=== PATIENT | male | born 1975 | race Caucasian/White ===

== ENCOUNTER 2019-06-17 20:40 | Observation (INO) | payer OTHER ==
--- NOTE | 2019-06-17 21:28 | XR ---
EXAMINATION TYPE: XR tibia fibula LT, XR foot complete LT, XR ankle complete LT DATE OF EXAM: 06/17/2019 CLINICAL HISTORY: Jumping injury with pain TECHNIQUE: Two views of the left leg are obtained. 3 views of left ankle and foot are obtained COMPARISON: None. FINDINGS: There is acute comminuted intra-articular displaced fracture through the medial malleolus extending into mortise with medial widening. Anterior portion of distal tibia is 5 to 6 mm displaced relative to posterior portion articulation with the talus. Lateral and posterior malleoli appear inta ct. The left knee joint appears within normal limits. Mild to moderate distal subcutaneous edema is p resent. Images of the left foot show no additional acute fracture or dislocation distally. Joint spaces and l eft foot are preserved. Mild diffuse subcutaneous edema is present. IMPRESSION: There is acute comminuted displaced fracture through the distal tibia involving medial m alleolus with mortise disruption. (Initial encounter closed type posttraumatic fracture)
[2019-06-17] MEDS ORDERED: MORPHINE SULFATE 4 MG/ML SYRINGE IVP STA (22:32)
[2019-06-17] MEDS ORDERED: MORPHINE SULFATE 4 MG/ML SYRINGE IV PRN (23:37)
[2019-06-17] MEDS ORDERED: NALOXONE 0.4 MG/ML 1 ML VIAL IV PRN (23:37)
--- NOTE | 2019-06-18 00:09 | XR ---
History: ITS.REASON XR Reason: Pain Exam: XR LEFT ANKLE 2 views Comparison: Preceding radiographs FINDINGS/IMPRESSION: Appearance of interval close reduction now with near anatomic alignment although there is still some incongruence along the anterior aspect of the distal tibia comminuted intra-articular fracture. Soft tissue swelling about the ankle. There is now a splint present.
[2019-06-18] MEDS ORDERED: MORPHINE SULFATE 4 MG/ML SYRINGE IVP STA (00:14)
[2019-06-18 00:24] LABS: HCT 47.8 % (39.0-53.0); HGB 15.4 gm/dL (13.0-17.5); MCH 29.4 pg (25.0-35.0); MCHC 32.3 g/dL (31.0-37.0); MCV 91.2 fL (80.0-100.0); Mean Platelet Volume 8.3; Platelet Count 189 k/uL (150-450); RBC 5.24 m/uL (4.30-5.90); RDW 14.6 % (11.5-15.5); WBC 14.9 k/uL (3.8-10.6)
--- NOTE | 2019-06-18 00:27 | ED ---
General Adult HPI - General Source: patient, family Mode of arrival: wheelchair Limitations: no limitations <Darnell Campbell - Last Filed: 06/18/19 00:29> <Chapin Novak - Last Filed: 06/18/19 02:02> - General Chief complaint: Extremity Injury, Lower Stated complaint: Ankle injury Time Seen by Provider: 06/17/19 20:51 - History of Present Illness Initial comments: Patient is a 43-year-old male presenting to emergency Department with a chief complaint of left ankle pain. Patient reports he was in a swing set when he hopped off and landed on his left ankle causing immediate pain. Patient reports the pain is exacerbated with palpation neared ankle, inversion, eversion, dorsiflexion and plantarflexion. Patient reports swelling superior to the ankle. Patient reports taking Tylenol to alleviate the pain with minimal improvement. Patient denies any numbness and tingling. Patient reports full ra nge of motion and his toes.. (Darnell Campbell) - Related Data Allergies Allergy/AdvReac Type Severity Reaction Status Date / Time bee venom protein (honey bee) Allergy Rash/Hives Verified 06/17/19 20:46 diphenhydramine Allergy Anaphylaxis Verified 06/17/19 20:46 [From Benadryl] Review of Systems ROS Other: All systems not noted in ROS Statement are negative. <Darnell Campbell - Last Filed: 06/18/19 00:29> ROS Other: All systems not noted in ROS Statement are negative. <Chapin Novak - Last Filed: 06/18/19 02:02> ROS Statement: Those systems with pertinent positive or pertinent negative responses have been documented in the HPI. Past Medical History Past Medical History: No Reported History History of Any Multi-Drug Resistant Organisms: None Reported Past Surgical History: No Surgical Hx Reported Past Psychological History: No Psychological Hx Reported Smoking Status: Current every day smoker Past Alcohol Use History: Occasional Past Drug Use History: None Reported <Darnell Campbell - Last Filed: 06/18/19 00:29> General Exam Limitations: no limitations General appearance: alert, in no apparent distress Head exam: Present: atraumatic, normocephalic, normal inspection Eye exam: Present: normal appearance, PERRL, EOMI Pupils: Present: normal accommodation ENT exam: Present: normal exam, mucous membranes moist, normal external ear exam Neck exam: Present: normal inspection, full ROM Respiratory exam: Present: normal lung sounds bilaterally Cardiovascular Exam: Present: regular rate, normal rhythm, normal heart sounds Extremities exam: Present: normal inspection (No lacerations, abrasions or ecchymosis.), tenderness (Mild to moderate tenderness with palpation near the medial malleolus in the region superior to that.), normal capillary refill, joint swelling (Left ankle swelling), other (+2 dorsalis pedis and posterior tibialis on the left foot.). Absent: full ROM (Limited range of motion due to pain. Pain with weightbearing.), calf tenderness Left Neurovascular tendon exam: Present: no vascular compromise. Absent: pulse deficit, abnormal cap refill, motor deficit, sensory deficit, tendon deficit, extremity cold to touch, pallor, abnormal 2-point discrimination Back exam: Present: normal inspection, full ROM Neurological exam: Present: alert, oriented X3 Psychiatric exam: Present: normal affect, normal mood Skin exam: Present: warm, intact, normal color <Darnell Campbell - Last Filed: 06/18/19 00:29> Course <Chapin Novak - Last Filed: 06/18/19 02:02> Vital Signs 06/17/19 06/17/19 06/18/19 20:41 22:46 00:57 Temperature 99 F 98.1 F Pulse Rate 92 103 H 72 Respiratory 20 20 18 Rate Blood Pressure 170/89 156/90 144/85 O2 Sat by Pulse 98 96 95 Oximetry - Reevaluation(s) Reevaluation #1: Pain is controlled, acceptable reduction (Chapin Novak) EKG Findings - EKG Comments: EKG Findings:: EKG shows sinus rhythm rate of 60, [place] 112, QRS 78, QTc 431 <Chapin Novak - Last Filed: 06/18/19 02:02> Procedures - Orthopedic Fracture Reduction Fracture #1 Consent Obtained: verbal consent Side: left Fracture Reduction Location: tibia Analgesia: other (Morphine) Technique: traction/counter-traction Post Reduction X-rays Demonstrate: acceptable reduction Post-Reduction Neuro Exam: intact Post-Reduction Vascular Exam: intact Splint Applied: Yes (Posterior splint) Patient Tolerated Procedure: well - Orthopedic Splinting/Casting Injury #1 Side: left Lower Extremity Injury Location: long leg Lower Extremity Immobilizer: posterior splint, Jose wrap, synthetic pre-padded splint <Darnell Campbell - Last Filed: 06/18/19 00:29> Medical Decision Making - Lab Data Result diagrams: 06/18/19 00:05 <Darnell Campbell - Last Filed: 06/18/19 00:29> - Lab Data Result diagrams: 06/18/19 00:05 06/18/19 00:05 <Chapin Novka - Last Filed: 06/18/19 02:02> - Medical Decision Making Patient is a 43-year-old male presenting to emergency Department with a chief complaint of left ankle pain. X-ray of the tib-fib, ankle and foot indicated a acute commuted displaced fracture through the distal tibia involving the medial malleolus with more Marielena's disruption. Patient was given morphine for pain. Mild diffuse subcutaneous edema is present. Case was discussed with Dr. Osborne who advised the patient to be placed on a posterior splint and admitted for further surgical management. Fracture was reduced. Patient will be nothing by mouth. Presurgical labs and imaging were obtained. Case discussed with Dr. Novak who is in agreement with the treatment plan. (Darnell Campbell) - Lab Data Lab Results 06/18/19 06/18/19 06/18/19 Range/Units 00:05 00:05 00:05 WBC 14.9 H (3.8-10.6) k/uL RBC 5.24 (4.30-5.90) m/uL Hgb 15.4 (13.0-17.5) gm/dL Hct 47.8 (39.0-53.0) % MCV 91.2 (80.0-100.0) fL MCH 29.4 (25.0-35.0) pg MCHC 32.3 (31.0-37.0) g/dL RDW 14.6 (11.5-15.5) % Plt Count 189 (150-450) k/uL PT 10.2 (9.0-12.0) sec INR 0.9 (<1.2) APTT 22.4 (22.0-30.0) sec Sodium 139 (137-145) mmol/L Potassium 4.5 (3.5-5.1) mmol/L Chloride 107 (98-107) mmol/L Carbon Dioxide 22 (22-30) mmol/L Anion Gap 10 mmol/L BUN 14 (9-20) mg/dL Creatinine 1.03 (0.66-1.25) mg/dL Est GFR (CKD-EPI)AfAm >90 (>60 ml/min/1.73 sqM) Est GFR (CKD-EPI)NonAf 88 (>60 ml/min/1.73 sqM) Glucose 99 (74-99) mg/dL Calcium 9.3 (8.4-10.2) mg/dL Total Bilirubin 0.5 (0.2-1.3) mg/dL AST 32 (17-59) U/L ALT 36 (21-72) U/L Alkaline Phosphatase 58 (38-126) U/L Total Protein 7.3 (6.3-8.2) g/dL Albumin 4.4 (3.5-5.0) g/dL Blood Type Blood Type Confirm Blood Type Recheck Spec Expiration Date 06/18/19 06/18/19 Range/Units 00:05 00:08 WBC (3.8-10.6) k/uL RBC (4.30-5.90) m/uL Hgb (13.0-17.5) gm/dL Hct (39.0-53.0) % MCV (80.0-100.0) fL MCH (25.0-35.0) pg MCHC (31.0-37.0) g/dL RDW (11.5-15.5) % Plt Count (150-450) k/uL PT (9.0-12.0) sec INR (<1.2) APTT (22.0-30.0) sec Sodium (137-145) mmol/L Potassium (3.5-5.1) mmol/L Chloride (98-107) mmol/L Carbon Dioxide (22-30) mmol/L Anion Gap mmol/L BUN (9-20) mg/dL Creatinine (0.66-1.25) mg/dL Est GFR (CKD-EPI)AfAm (>60 ml/min/1.73 sqM) Est GFR (CKD-EPI)NonAf (>60 ml/min/1.73 sqM) Glucose (74-99) mg/dL Calcium (8.4-10.2) mg/dL Total Bilirubin (0.2-1.3) mg/dL AST (17-59) U/L ALT (21-72) U/L Alkaline Phosphatase (38-126) U/L Total Protein (6.3-8.2) g/dL Albumin (3.5-5.0) g/dL Blood Type A Positive Blood Type Confirm A Positive Blood Type Recheck CABO Indicated Spec Expiration Date 06/21/2019 1066 Disposition Is patient prescribed a controlled substance at d/c from ED?: No Time of Disposition: 00:32 <Darnell Campbell - Last Filed: 06/18/19 00:29> <Chapin Novak - Last Filed: 06/18/19 02:02> Clinical Impression: Fracture of distal end of left tibia Disposition: HOME SELF-CARE Condition: Stable Instructions (If sedation given, give patient instructions): Leg Fracture (ED) Additional Instructions: Patient will be admitted for further management. Referrals: None,Stated [Primary Care Provider] - 1-2 days
[2019-06-18 00:32] LABS: INR 0.9 (<1.2); Partial Thromboplastin Time 22.4 sec (22.0-30.0); Prothrombin Time 10.2 sec (9.0-12.0)
[2019-06-18 00:34] LABS: ALT 36 U/L (21-72); AST 32 U/L (17-59); African American GFR (CKD) >90 (>60 ml/min/1.73 sqM); Albumin 4.4 g/dL (3.5-5.0); Alkaline Phosphatase 58 U/L (38-126); Anion Gap 10 mmol/L; Blood Urea Nitrogen 14 mg/dL (9-20); Calcium 9.3 mg/dL (8.4-10.2); Carbon Dioxide 22 mmol/L (22-30); Chloride 107 mmol/L (98-107); Glucose 99 mg/dL (74-99); Sodium 139 mmol/L (137-145); Total Bilirubin 0.5 mg/dL (0.2-1.3); Total Protein 7.3 g/dL (6.3-8.2)
[2019-06-18 00:47] LABS: Potassium 4.5 mmol/L (3.5-5.1)
--- NOTE | 2019-06-18 00:48 | XR ---
History: ITS.REASON XR Reason: Pain Exam: XR CXR 1 VIEW Comparison: None available FINDINGS: The lungs are clear. The cardiac and mediastinal contours appear within limits. The visualized osseous structures appear within limits. IMPRESSION: No evidence of acute disease.
[2019-06-18] MEDS: SODIUM CHLORIDE 0.9% 1,000 ML IV SCH ×2 (00:57→16:28)
[2019-06-18 03:39] VITALS: BMI 23.6
--- NOTE | 2019-06-18 08:44 | P.HPOR ---
History of Present Illness H&P Date: 06/18/19 Chief Complaint: Left ankle injury The patient is a 43-year-old male who jumped off a swing and injured his left ankle. He was brought to the emergency department at [facility] where x-rays revealed a displaced pilon fracture. He localizes the pain to the left ankle and denies any other injuries. He admits that he's had issues with rolling both ankles many times throughout his life but no major fractures or previous ankle surgeries. Past medical history is significant for atrial fibrillation. He denies diabetes, cardiovascular kidney disease. He is a current smoker of 1.5 packs per day. Past Medical History Past Medical History: No Reported History Additional Past Medical History / Comment(s): states he has been diagnosed with an arrythmia vs. afib years ago. states he has not had his condition checked out nor does he take any medications to maintain it. states it feels like he has butterflies in his chest and that this happens primarily at night. History of Any Multi-Drug Resistant Organisms: None Reported Past Surgical History: No Surgical Hx Reported Additional Past Surgical History / Comment(s): lasik eye surgery, tubes in ears. Past Psychological History: No Psychological Hx Reported Smoking Status: Current every day smoker Past Alcohol Use History: Occasional Past Drug Use History: None Reported - Past Family History Father Family Medical History: Cancer Mother Family Medical History: No Reported History Medications and Allergies Home Medications Medication Instructions Recorded Confirmed Type No Known Home Medications 06/18/19 06/18/19 History Allergies Allergy/AdvReac Type Severity Reaction Status Date / Time bee venom protein (honey bee) Allergy Rash/Hives Verified 06/18/19 08:00 diphenhydramine Allergy Anaphylaxis Verified 06/18/19 08:00 [From Benadryl] Physical Examination HEENT: Normocephalic and atraumatic. Cardiovascular: Regular rate and rhythm. Pulmonary: No audible wheeze or conversational dyspnea Abdomen: Soft & nontender Musculoskeletal: Left lower extremity: A posterior splint is in place. This was windowed to evaluate the soft tissues. There is mild to moderate evolving edema around the ankle. No visible blisters, open wounds or abrasions. Dorsalis pedis pulses 2+ and regular. The foot is warm and well-perfused with brisk capillary refill. Intact light touch sensation throughout the foot and ankle. He is able to wiggle his toes. No tenderness to palpation around the knee. No pain in the hip with logroll. Pelvis is stable to AP and lateral compression. Results X-rays of the left ankle were reviewed and interpreted from an orthopedic standpoint. These demonstrate a comminuted, displaced pilon ankle fracture- subluxation. There is a large vertical split through the center of the tibial plafond, exiting the medial metaphysis proximally. There is a separate fragment of the anterolateral aspect of the plafond. There is asymmetry of the mortise with anterior and medial subluxation of the talus. Periarticular spurring is noted, consistent with the patient's history of chronic ankle sprains. - Labs Labs: Abnormal Lab Results - Last 24 Hours (Table) 06/18/19 Range/Units 00:05 WBC 14.9 H (3.8-10.6) k/uL H & H 06/18/19 Range/Units 00:05 Hgb 15.4 (13.0-17.5) gm/dL Hct 47.8 (39.0-53.0) % Coagulation 06/18/19 Range/Units 00:05 INR 0.9 (<1.2) Result Diagrams: 06/18/19 00:05 06/18/19 00:05 Assessment and Plan Assessment: 1. Displaced, comminuted left pilon ankle fracture-subluxation status post fall 2. Paroxysmal atrial fibrillation 3. Nicotine addiction/tobacco abuse Plan: I discussed the diagnosis and radiographic findings with the patient. We reviewed the pertinent anatomy and pathophysiology of the injury. We discussed treatment options. I explained that this is a complex fracture pattern that is commonly treated in a staged fashion. I recommended closed reduction in the operating room followed by examination under anesthesia and splint application versus application of external fixator. We discussed the surgical and posto perative plan. Risks and benefits were reviewed including (but not limited to) the risks of infection, bleeding, blood clots, pin tract infection and need for additional surgery. I discussed the negative effects of cigarette smoking, particularly as it relates to risk of infection, wound healing complications and delayed fracture healing or nonunion. Questions were invited and answered. The patient expressed understanding and wishes to proceed as outlined above. The patient will be kept on bedrest. Continue PRN pain management. NPO. We will obtain a CT scan after reduction and stabilization for preop planning. Thank you for allowing me to participate in the care of this patient. Lawson Osborne D.O. Orthopedic surgeon [facility]
[2019-06-18] MEDS ORDERED: LACTATED RINGERS 1,000 ML IV ONE ×2 (09:57→10:38)
[2019-06-18] MEDS ORDERED: LIDOCAINE 1% INJ 10MG/ML (20 ML MDV) ONE (09:58)
[2019-06-18] MEDS ORDERED: SUCCINYLCHOLINE CHLORIDE 100 MG/5 ML SYR IV ONE (09:58)
[2019-06-18] MEDS ORDERED: ROPIVACAINE 5 MG/ML 30 ML VIAL MISCELLANE ONE ×2 (09:58→11:17)
[2019-06-18] MEDS ORDERED: ALBUTEROL INHALER 60 PUFF/8 GM INHALER INHALATION ONE (09:58)
[2019-06-18] MEDS ORDERED: PROPOFOL 10 MG/ML 20 ML VIAL IV ONE (09:58)
[2019-06-18] MEDS ORDERED: ONDANSETRON 4 MG/2 ML VIAL ONE (09:58)
[2019-06-18] MEDS ORDERED: HYDROmorphone (PF) 1 MG/ML ONE (09:58)
[2019-06-18] MEDS ORDERED: MIDAZOLAM 2 MG/2 ML VIAL ONE (09:58)
[2019-06-18] MEDS ORDERED: fentaNYL (PF) 50 MCG/ML 2 ML AMP ONE (09:58)
[2019-06-18] MEDS ORDERED: SODIUM CHLORIDE 0.9% 1,000 ML IV ONE (09:59)
[2019-06-18] MEDS ORDERED: SODIUM CHLORIDE 0.9% 100 ML with ceFAZolin 2,000 MG IV ONE ×2 (10:15)
[2019-06-18] MEDS ORDERED: ONDANSETRON 4 MG/2 ML VIAL IVP PRN (11:41)
[2019-06-18] MEDS ORDERED: HYDROcodone/APAP 5-325MG 1 EACH TAB PO PRN ×2 (11:41)
[2019-06-18] MEDS ORDERED: HYDROmorphone 1 MG/ML 1 ML SYRINGE IVP ONE ×3 (12:03→12:30)
--- NOTE | 2019-06-18 14:07 | FL ---
FLUOROSCOPY 41 seconds of fluoroscopy time were utilized during external fixation of the left tibia. 7 images doc ument the procedure.
--- NOTE | 2019-06-18 14:34 | CT ---
EXAMINATION TYPE: CT lower extremity LT wo con DATE OF EXAM: 06/18/2019 COMPARISON: Plain films from earlier today. HISTORY: Preop Evaluation CT DLP: 330.7 mGycm Automated exposure control for dose reduction was used. FINDINGS: There is a comminuted intra-articular fracture of the distal left tibia. A definite fibular fracture is not seen. The talus appears intact. There is a screw within the calcaneus. IMPRESSION: COMMINUTED INTRA-ARTICULAR FRACTURE OF THE DISTAL LEFT TIBIA INVOLVING THE MEDIAL MALLEOLUS.
[2019-06-18 16:05] VITALS: BP 142/87; PULSE 67; RESP 16; TEMP 98.2
--- NOTE | 2019-06-18 17:23 | P.OP ---
Date of Procedure: 06/18/19 Preoperative Diagnosis: Displaced, comminuted left pilon ankle fracture-subluxation Postoperative Diagnosis: Displaced, comminuted left pilon ankle fracture-subluxation Procedure(s) Performed: 1. Fluoroscopic dynamic examination under anesthesia of displaced, comminuted left pilon ankle fracture-subluxation 2. Application of external fixator for displaced, comminuted left pilon ankle fracture-subluxation and splint application Implants: Synthes large external fixator with two 5.0 mm Shanz screws and a 6.5 mm centrally-threaded Steinmann pin. Anesthesia: GETA, local Surgeon: Lawson Osborne Estimated Blood Loss (ml): 5 Condition: stable Disposition: PACU Indications for Procedure: The patient is a 43-year-old male who sustained a displaced left pilon ankle fracture-subluxation after jumping off a swing. I recommended an exam under anesthesia followed by splinting versus application of external fixator in anticipation of second stage ORIF once soft tissues are amenable. Risks and benefits were discussed with the patient, including (but not limited to) the risks of infection, bleeding, injury tendons or neurovascular structures, recurrent subluxation, pin tract infection and possible need for future surgery. He expressed understanding and wished to proceed as outlined above. Consent forms were signed. The surgical site was confirmed and marked preoperatively. Description of Procedure: The patient was positioned supine. All bony prominences were well padded. General anesthesia was administered uneventfully. A timeout was performed, confirming patient identifiers, the operative side, the site and the procedure to be performed: all team members expressed agreement. The splint was removed and the left ankle was examined. There was moderate evolving edema circumferentially around the ankle but no ulcerations, open wounds or impending skin breakdown. The ankle was examined with intraoperative fluoroscopy. There was obvious incongruity of the articular surface at the tibial plafond. The ankle was stressed under live fluoroscopy: the fracture was unstable and the talus grossly subluxed medially with translation of the foot. The decision was made to proceed with application of the external fixator. Prophylactic IV antibiotics were administered. A tourniquet was placed on the left thigh but was not inflated. The left lower extremity was then prepped and draped in standard, sterile fashion. The starting point was localized with imaging. Small longitudinal incisions were made on the anteromedial aspect of the tibial shaft. Two 5 mm Shanz screws were drilled and inserted, confirming placement on imaging. The starting point for the calcaneal pin was identified and imaging. A small medial incision was made. Blunt, spreading dissection proceeded down to the bone. A 6.5 mm centrally- threaded Steinmann pin was drilled across the calcaneus and out the lateral side through a small stab incision. A large pin clamp was applied to the proximal Schanz screws. Two carbon fiber rods were attached proximally and onto each side of the calcaneal pin, creating a delta frame. The clamps were tightened distally. Axial traction was applied and, with the fracture held reduced, the remaining clamps were tightened. Final images were obtained which confirmed acceptable reduction of the fracture with the talus well-seated within the mortise. Good hemostasis was maintained throughout the case without the need for the tourniquet. The wounds were irrigated. An ankle block was performed using local anesthetic. Sterile sponges soaked in Betadine were placed around the pin sites to protect the soft tissues. A sterile dressing was applied followed by a short leg sugartong plaster splint. All sponge, needle and instrument counts were correct at the end of the case. The patient tolerated the procedure well and was taken to the recovery room in stable condition.
[2019-06-19] MEDS ORDERED: ASPIRIN 325 MG TAB PO SCH (09:00)
--- NOTE | 2019-06-21 11:51 | P.DS ---
Providers Date of admission: 06/18/19 02:01 Expected date of discharge: 06/18/19 Attending physician: Lawson Osborne DO Primary care physician: Stated None Hospital Course: Patient is a 43-year-old male who sustained a traumatic injury to his left ankle after jumping off a swing. X-rays in the emergency department revealed a comminuted left pilon ankle fracture-subluxation. Reduction and stabilization in the OR was recommended. He underwent fluoroscopic examination under anesthesia in the OR followed by closed reduction and surgical stabilization of left pilon fracture with application of external fixator on 06/18/2019. The procedure was performed without sequelae or complication. He was transferred to the floor for continued observation and pain control. At time of discharge, his pain is well-controlled, he is ambulating independently with crutches. Light touch sensation and gross motor function is intact in the foot. He is deemed stable and appropriate for discharge home. Procedures: Fluoroscopic examination under anesthesia, closed reduction and surgical stabilization of left pilon fracture with application of external fixator Patient Condition at Discharge: Stable Plan - Discharge Summary Discharge Rx Participant: No New Discharge Prescriptions: New Cephalexin [Keflex] 500 mg PO Q8H 5 Days #15 cap Aspirin 325 mg PO DAILY 30 Days #30 tab HYDROcodone/APAP 5-325MG [[place] 5-325] 1 - 2 each PO Q6HR PRN #40 tab PRN Reason: Pain Discharge Medication List Aspirin 325 mg PO DAILY 30 Days #30 tab 06/18/19 [Rx] Cephalexin [Keflex] 500 mg PO Q8H 5 Days #15 cap 06/18/19 [Rx] HYDROcodone/APAP 5-325MG [[place] 5-325] 1 - 2 each PO Q6HR PRN #40 tab 06/18/19 [Rx] Follow up Appointment(s)/Referral(s): None,Stated [Primary Care Provider] - 1-2 days (CALL PCP OF CHOICE OFFICE ON WEDNESDAY TO SCHEDULE APPOINTMENT, OFFICE CLOSED AT TIME OF DISCHARGE.) Tom Salinas MD [Medical Doctor] - 1 Week (CALL OFFICE ON WEDNESDAY TO SCHEDULE APPOINTMENT, OFFICE CLOSED AT TIME OF DISCHARGE.) Ambulatory/Diagnostic Orders: Crutches [DME.AMB1] Location: None Selected Patient Instructions/Handouts: Cast Care (DC), Leg Fracture (ED), External Fixation of an Ankle Fracture (DC) Activity/Diet/Wound Care/Special Instructions: Orthopedic Postoperative Discharge Instructions Ice & elevate the left ankle. Use norco or over the counter pain medication as directed. Non-weightbearing on the left leg. Do not walk on left leg! Keep the splint/dressing dry. Cover with a plastic bag to shower. Call as soon as possible to schedule a follow-up appointment with Dr. Salinas to be seen in approximately 1 week. Discharge Disposition: HOME SELF-CARE
== END 2019-06-18 18:24 | disposition home or self-care (01) ==
LOC: EC 20:40 → INTOOBSV 06-18 02:01 → 4SSUR 06-18 02:01
PROVIDERS: ADMIT Orthopaedic Surgery; ATTEND Orthopaedic Surgery
DX: S82.872A Displaced pilon fracture of left tibia, initial encounter for closed fracture (principal); F17.210 Nicotine dependence, cigarettes, uncomplicated; I48.0 Paroxysmal atrial fibrillation; W09.1XXA Fall from playground swing, initial encounter; Z88.8 Allergy status to other drugs, medicaments and biological substances; Z91.030 Bee allergy status
CPT/HCPCS: 27825; 20690; 96376; 96374; 99285; 36415; 93005; 86900; 86901; 80053; 85027; 85610; 85730; 86850; 73590; 73600; 73610 ×2; 73630; 71045; 73700; G0378 ×2; C1713; J2250; J2270 ×2; J0690 ×2; J2405; J2001; J3010; J1170; J2795; J0330; J2704

== ENCOUNTER 2019-07-06 08:00 | Observation (INO) | payer OTHER ==
[2019-06-30 15:18] VITALS: BMI 24.3
[~2019-07-06 08:00] MED LIST: DEXAMETHASONE SOD PHOSPHATE 10 MG/ML 1 ML VIAL IV ONE; MIDAZOLAM 2 MG/2 ML VIAL IV PRN; SCOPOLAMINE 1.5MG/72HR PATCH TRANSDERM ONE
[2019-07-06] MEDS ORDERED: LIDOCAINE 1% 20 ML VIAL (10MG/ML) FOR IV START INTRADERMA ONE (08:46)
[2019-07-06] MEDS: LACTATED RINGERS 1,000 ML IV SCH ×4 (08:46→17:29)
[2019-07-06] MEDS: ONDANSETRON 4 MG/2 ML VIAL IVP ONE ×2 (08:50→12:37)
[2019-07-06] MEDS ORDERED: FAMOTIDINE 20 MG/2 ML VIAL IV ONE (09:06)
[2019-07-06] MEDS ORDERED: SUCCINYLCHOLINE CHLORIDE 100 MG/5 ML SYR IV ONE (09:36)
[2019-07-06] MEDS ORDERED: MIDAZOLAM 2 MG/2 ML VIAL ONE (09:36)
[2019-07-06] MEDS ORDERED: ROCURONIUM BROMIDE 10 MG/ML 10 ML VIAL IV ONE (09:36)
[2019-07-06] MEDS ORDERED: fentaNYL (PF) 50 MCG/ML 2 ML AMP ONE (09:36)
[2019-07-06] MEDS ORDERED: HYDROmorphone (PF) 1 MG/ML ONE (09:36)
[2019-07-06] MEDS ORDERED: PROPOFOL 10 MG/ML 20 ML VIAL IV ONE (09:36)
[2019-07-06] MEDS ORDERED: LIDOCAINE 1% INJ 10MG/ML (20 ML MDV) ONE (09:36)
[2019-07-06] MEDS ORDERED: LACTATED RINGERS 1,000 ML IV ONE (11:00)
[2019-07-06] MEDS ORDERED: HYDROmorphone 0.5 MG/0.5 ML SYRINGE IVP PRN ×2 (12:32)
[2019-07-06] MEDS ORDERED: ONDANSETRON 4 MG/2 ML VIAL IVP PRN (12:32)
[2019-07-06] MEDS ORDERED: SENNOSIDES-DOCUSATE SODIUM 1 EACH TAB PO PRN (12:32)
[2019-07-06] MEDS: HYDROmorphone 0.5 MG/0.5 ML SYRINGE IVP PRN ×4 (12:37→12:48)
[2019-07-06] MEDS ORDERED: PROMETHAZINE INJ 25 MG/ML 1 ML VIAL IVPB ONE (12:51)
--- NOTE | 2019-07-06 12:51 | P.OP ---
Date of Procedure: 07/06/19 Preoperative Diagnosis: 1. Left intra-articular distal tibia pilon fracture with pre-existing arthritis 2. Current every day cigarette smoker Postoperative Diagnosis: Same Procedure(s) Performed: 1. Open reduction and internal fixation of left distal tibia fracture 2. Removal of ankle spanning external fixator, left leg 3. Manual application of joint stress by physician for radiography, left ankle Anesthesia: GETA Surgeon: Tom Salinas Rig Builder #1: Loyda Monsalve Estimated Blood Loss (ml): 20 IV fluids (ml): 1,200 Pathology: none sent Condition: stable Disposition: PACU Indications for Procedure: The patient is a very pleasant 43-year-old male with a medical history significant for being a current every day cigarette smoker, smoking up to 1-1/2 packs of cigarettes a day, and having had multiple prior ankle injuries and pre- existing left ankle arthritis who sustained an isolated injury to his left leg 2 weekends ago. He was seen by my partner and placed into an ankle spanning external fixator. Following placement of external fixator a computed tomography scan was obtained. The patient followed up in my office to discuss treatment. I recommended open reduction and internal fixation. We discussed that he is at significantly higher risk of having a complication due to his cigarette smoking. We also discussed that his x-rays and computed tomography scan showed pre- existing ankle arthritis and that following surgery he would likely have an exacerbation of his pre-existing arthritis and likely progression of the arthritis. The patient and his parents understood this. We a long discussion o n all the potential risks and complications of surgery including but not limited to risk of anesthesia, superficial infection, deep infection, delayed wound healing, wound necrosis, damage to local blood vessels or nerves, nonunion the fracture site, malunion of the fracture site, malreduction of the ankle mortise, DVT, PE, other medical complications, systematic hardware, need for further surgery, and inability to regain preinjury level of function, dissatisfaction with his surgical outcome, and possibly loss of life or limb. The patient voiced his understanding of this and also acknowledges that other less common complications are possible. He provided his verbal and written consent to go forward with surgery. He was strongly encouraged to quit smoking and understands that he is at a higher risk of having a complication due to his cigarette smoking. Operative Findings: Following placement of all hardware the ankle mortise was stable and there was no anterior subluxation or scape of the talus under the tibial plafond with active stress under fluoroscopy. All wounds were able to be closed without tension. Description of Procedure: The patient was identified in preoperative holding and the correct left leg was marked with my initials. I reviewed the consent form with the patient and all of his questions were answered. The patient was then brought back to the operating room. He was positioned on the OR table where a general anesthetic and preoperative antibiotics were given. Once the patient was under anesthesia a timeout was performed identifying the correct patient, operative extremity, and procedure. The clamps and bars and the external fixator were removed. The pins were gently cleaned and then removed. A tourniquet was then applied the proximal aspect of the left leg. A bump was placed under the left buttock internally rotating the leg to neutral. All bony prominences were well-padded. The leg was then prepped and draped in the standard sterile fashion. The leg was then elevated, exsanguinated with an Esmarch bandage, and the tourniquet was inflated to 250 mmHg. I began by obtaining percutaneous fixation of the anterolateral fragment across the posterior fragment. I elected to place percutaneous cannulated screws as I did not want to place dual incisions due to the patient's extensive smoking history. Stab incisions were made over the anterolateral and posterior lateral ankle. A large 8 inch Borden reduction clamp was used to percutaneously clamp the Chaput fragment through the posterior lateral fragment. Fluoroscopy was used to verify reduction. Cannulated 4.0 mm screws were placed from anterior to posterior capturing the fragments. The clamp was removed and the reduction he ld. At this point a straight medial incision was made over the medial malleolus. Skin incision was made with a scalpel and dissection was carried down to the subcu tenderness tissue taking care to not undermine the skin flaps. The periosteum over the distal aspect of the medial tibia was sharply elevated. The fracture site involving the medial fragment was identified. The fracture site was cleaned of debris. The [id number] reduction clamp was used to reduce the medial fragment to the anterolateral and posterior fragment. I was able to visualize the anterior spike of the medial fragment were keyed into the proximal shaft. A nonlocking 2.7 mm lag screw was then placed across the medial fragment. It it was countersunk and excellent compression was obtained. A precontoured medial distal tibia plate with 10 proximal holes was then slid subperiosteally along the tibia proximally. Its position was verified in the AP and lateral plane with fluoroscopy. A stab incision was made at the most proximal hole and a locking power was placed followed by pin to hold the plate in place. Distally a second locking power was placed and pinned to hold the plate and placed distally. Fluoroscopy was once again used to verify that the plate was centered in both the AP and lateral planes. Nonlocking 3.5 mm screws were then placed proximally to the fracture, bringing the plate down to bone. I then placed a nonlocking 3.5 mm screw distally bringing the plate down to bone. I proceeded to place additional locking 3.5 mm screws distally. The locking towers and pins were removed. A final nonlocking 3.5 mm screw was placed proximally. Final fluoroscopic images were taken. On the mortise view the fracture appeared to be anatomically reduced and the ankle mortise was intact. On the lateral view the talus was centered of the tibial plafond. With the fluoroscopy unit and live imaging I was not able to anterior sublux the talus under the plafond. I interpreted this as a stable construct. The wound was then thoroughly irrigated and closed in layers with 0 Vicryl running stitch and the periosteum of the medial wound, 3-0 Monocryl in the deep subcu, and 3-0 nylon Algor modification the Donati stitch for the medial skin incision. All stab incisions were closed with 3-0 Monocryl. The external fixator wounds were left open to drain. The tourniquet was let down. A sterile dressing consisting of brown quarter and stretchy Steri-Strips, Betadine soaked Adaptic, and 4 x 4 was applied. The drapes were taken down and a well-padded bulky Gardiner splint was placed with the ankle neutral. The patient was then awoken from his anesthetic, transferred to a gurney, and brought to recovery having time out procedure well. Loyda Monsalve PA-C was required as a skilled junior assistant manager for patient positioning, removal of the external fixator, exposure, placement of hardware, closure of wound, and application of splint. X Plan: The patient is going to be admitted overnight for pain control and 2 doses of postoperative antibiotics. He is to range Stickley nonweightbearing in his splint. He'll be treated with Lovenox for DVT prophylaxis while in-house and will be discharged home on aspirin. He will likely be nonweightbearing for 10- 12 weeks. He was strongly encouraged to quit smoking.
[2019-07-06] MEDS: MEPERIDINE 50 MG/ML SYRINGE IVP ONE ×2 (12:57→13:25)
--- NOTE | 2019-07-06 14:09 | XR ---
Limited left ankle HISTORY: Open reduction internal fixation, fracture 6 intraoperative C-arm images document the procedure.
--- NOTE | 2019-07-06 14:10 | FL ---
Fluoroscopy HISTORY: Fracture 4 minutes 9 seconds fluoroscopy time supplied to the referring clinician. 6 intrao perative C-arm images document the procedure. See dictated report from orthopedic surgery.
[2019-07-06] MEDS: HYDROcodone/APAP 10-325MG 1 EACH TAB PO PRN (16:09)
[2019-07-06 16:56] LABS: Basophils % (A) 0 %; Eosinophils % (A) 0 %; HCT 46.2 % (39.0-53.0); HGB 14.8 gm/dL (13.0-17.5); Lymphocytes # (A) 0.8 k/uL (1.0-4.8); Lymphocytes % (A) 5 %; MCH 29.1 pg (25.0-35.0); MCV 91.1 fL (80.0-100.0); Mean Platelet Volume 7.8; Monocytes # (A) 0.4 k/uL (0-1.0); Monocytes % (A) 2 %; Neutrophils # (A) 15.7 k/uL (1.3-7.7); Neutrophils % (A) 93 %; Platelet Count 280 k/uL (150-450); RBC 5.07 m/uL (4.30-5.90); RDW 12.6 % (11.5-15.5)
[2019-07-06] MEDS: NICOTINE 14MG/24HR PATCH TRANSDERM SCH (17:26)
[2019-07-06] MEDS: HYDROmorphone 1 MG/ML 1 ML SYRINGE IVP PRN (19:47)
[2019-07-07] MEDS: HYDROcodone/APAP 10-325MG 1 EACH TAB PO PRN ×3 (00:05→17:49)
[2019-07-07] MEDS: HYDROmorphone 1 MG/ML 1 ML SYRINGE IVP PRN ×6 (00:54→21:36)
[2019-07-07] MEDS: NICOTINE 14MG/24HR PATCH TRANSDERM SCH (08:06)
[2019-07-07] MEDS: ENOXAPARIN 40 MG/0.4 ML SYRINGE SQ SCH (08:07)
[2019-07-07] MEDS: LACTATED RINGERS 1,000 ML IV SCH ×2 (11:11→17:52)
--- NOTE | 2019-07-07 13:52 | P.PN ---
Subjective Progress Note Date: 07/07/19 This patient is a 43-year-old male with past medical history of nicotine dependence who sustained an injury to the left lower extremity about 2 weeks ago. He was originally seen the [facility] ER, and an ankle spanning external fixator was placed. Following placement of the external fixator, the patient was followed in the office as an outpatient by Dr. Salinas to discuss treatment. An open reduction and internal fixation of left distal tibia fracture was recommended. Patient underwent an ORIF of the left distal tibia on 07/06/[address] Salinas. Today's postoperative day #1. The patient states he is experiencing moderate pain in the ankle today. He is requiring IV Dilaudid at this time for pain control. He has not yet been up with physical therapy yet today, although he states he got up last night to use the restroom with use of a walker. He states he has been remaining nonweightbearing on the operative leg. He tolerated breakfast well. Patient denies chest pain, shortness breath, nausea, vomiting, numbness or tingling of the left lower extremity. He denies no new complaints t mckay. Vital signs stable. Patient was seen and examined by Dr. Salinas. Objective - Vital Signs Vital signs: Vital Signs Temp 97.9 F 07/07/19 07:00 Pulse 80 07/07/19 07:00 Resp 16 07/07/19 07:00 BP 138/90 07/07/19 07:00 Pulse Ox 96 07/07/19 07:00 Intake & Output 07/06/19 07/07/19 07/07/19 18:59 06:59 18:59 Intake Total 2009 720 600 Output Total 20 900 900 Balance 1989 Intake: IV 1650 Intake, IV Titration 600 Amount Lactated Ringers 1,000 ml 600 @ 100 mls/hr IV .Q10H LUIS Rx#:[id number] Oral 360 720 Output: Urine 900 900 Estimated Blood Loss 20 Other: Voiding Method Toilet # Voids 1 3 2 - Exam On examination, the patient is lying in bed in no acute distress. The patient is alert and oriented 3. On inspection of the left lower extremity, there is a bulky Gardiner splint in place. The splint is clean, dry, and intact. The left toes are warm and well perfused, with capillary refill less than 2 seconds. The patient is able to wiggle his left toes without difficulty. Sensation is intact to light touch of the left lower extremity. Neurovascular is intact of the left lower extremity. Right lower extremity compression cuff in place. The right calf is soft and nontender. - Labs CBC & Chem 7: 07/06/19 16:20 Labs: Abnormal Lab Results - Last 24 Hours (Table) 07/06/19 07/06/19 Range/Units 16:20 16:20 WBC 17.0 H (3.8-10.6) k/uL Neutrophils # 15.7 H (1.3-7.7) k/uL Lymphocytes # 0.8 L (1.0-4.8) k/uL Vitamin D 25-Hydroxy 23.2 L (30.0-100.0) ng/mL Assessment and Plan Assessment: Left intra-articular distal tibia pilon fracture status-post open reduction and internal fixation on 07/06/19. Postoperative day #1. Plan: - Strict nonweightbearing of the left lower extremity. Ice and elevate the left lower extremity to decrease pain and swelling. - Physical therapy for gait and balance training. - Continue pain management. Decrease use of IV Dilaudid as tolerated. - Lovenox while he is inpatient for anticoagulation. - 2 doses of postoperative antibiotics complete. - Anticipate discharge home in the next 24-48 hours.
[2019-07-08] MEDS: HYDROcodone/APAP 10-325MG 1 EACH TAB PO PRN ×3 (01:11→13:04)
[2019-07-08] MEDS: HYDROmorphone 1 MG/ML 1 ML SYRINGE IVP PRN ×2 (01:56→07:27)
[2019-07-08] MEDS: LACTATED RINGERS 1,000 ML IV SCH ×2 (04:15)
[2019-07-08] MEDS: ENOXAPARIN 40 MG/0.4 ML SYRINGE SQ SCH (07:44)
[2019-07-08] MEDS: NICOTINE 14MG/24HR PATCH TRANSDERM SCH (07:48)
[2019-07-08 08:05] VITALS: BP 129/82; PULSE 69; RESP 18; TEMP 98.3
--- NOTE | 2019-07-08 10:08 | P.PN ---
Subjective Progress Note Date: 07/08/19 Patient is doing well this morning his pain is significantly improved. He does relate that the Dilaudid helps and is concerned about waiting too long between his doses of Dilaudid. He is otherwise without complaints. Objective - Vital Signs Vital signs: Vital Signs Temp 98.3 F 07/08/19 07:00 Pulse 69 07/08/19 07:00 Resp 18 07/08/19 07:00 BP 129/82 07/08/19 07:00 Pulse Ox 96 07/08/19 07:00 Intake & Output 07/07/19 07/08/19 07/08/19 18:59 06:59 18:59 Intake Total 810 Output Total 900 2500 Balance -90 -2500 Intake: Intake, IV Titration 600 Amount Lactated Ringers 1,000 ml 600 @ 100 mls/hr IV .Q10H LUIS Rx#:[id number] Oral 210 Output: Urine 900 2500 Other: Voiding Method Toilet Urinal # Voids 2 4 - Exam The patient is in no distress and appears comfortable. The splint on his ope rative leg is clean and dry with no drainage. The tips the toes are warm and well perfused with brisk capillary refill. Sensation is intact to light touch in the visible portion of his toes. There is no pain with passive range of motion of the toes. - Labs CBC & Chem 7: 07/06/19 16:20 Assessment and Plan Plan: Patient appears to be doing much better this morning. I would like to transition him off IV pain medication to oral pain medication. He can discharge home when his pain is controlled and he passes physical therapy, likely this afternoon.
--- NOTE | 2019-07-08 10:10 | P.DS ---
Providers Date of admission: 07/07/19 01:20 Attending physician: Tom Salinas Primary care physician: [facility] Course: The patient underwent operative fixation of a distal tibia pilon fracture this past . He received 2 doses of postoperative antibiotics. He was transitioned from IV to oral pain medication. He worked with physical therapy and received crutches. There were no complications during his hospitalization. Procedures: Open reduction and internal fixation of distal tibia fracture, removal of external fixator, and application of short-leg splint Patient Condition at Discharge: Good Plan - Discharge Summary Discharge Rx Participant: Yes New Discharge Prescriptions: New oxyCODONE HCL/ACETAMINOPHEN [Percocet 5-325 mg] 1 tab PO Q4HR PRN 3 Days #18 tab PRN Reason: Pain HYDROcodone/APAP 10-325MG [[place] 10-325] 1 tab PO Q4HR PRN 3 Days #40 tab PRN Reason: Pain Docusate [Colace] 100 mg PO BID #28 capsule Aspirin 325 mg PO BID #28 tab Calcium Carbonate 500 mg PO TID #90 tablet Cholecalciferol (Vitamin D3) [Vitamin D3] 2,000 unit PO DAILY #90 capsule Ergocalciferol (Vitamin D2) [Vitamin D2] 50,000 unit PO Q7DAYS #20 capsule No Action Aspirin 325 mg PO DAILY 30 Days #30 tab Cephalexin [Keflex] 500 mg PO QID HYDROcodone/APAP 10-325MG [[place] 10-325] 1 tab PO Q6HR PRN PRN Reason: Pain Psyllium Husk 100% [Metamucil Packet] 6 gm PO BID PRN PRN Reason: Constipation Discharge Medication List Aspirin 325 mg PO DAILY 30 Days #30 tab 06/18/19 [Rx] Cephalexin [Keflex] 500 mg PO QID 06/30/19 [History] HYDROcodone/APAP 10-325MG [[place] 10-325] 1 tab PO Q6HR PRN 06/30/19 [History] Psyllium Husk 100% [Metamucil Packet] 6 gm PO BID PRN 07/07/19 [History] Aspirin 325 mg PO BID #28 tab 07/08/19 [Rx] Calcium Carbonate 500 mg PO TID #90 tablet 07/08/19 [Rx] Cholecalciferol (Vitamin D3) [Vitamin D3] 2,000 unit PO DAILY #90 capsule 07/08/19 [Rx] Docusate [Colace] 100 mg PO BID #28 capsule 07/08/19 [Rx] Ergocalciferol (Vitamin D2) [Vitamin D2] 50,000 unit PO Q7DAYS #20 capsule 07/08/19 [Rx] HYDROcodone/APAP 10-325MG [[place] 10-325] 1 tab PO Q4HR PRN 3 Days #40 tab 07/08/19 [Rx] oxyCODONE HCL/ACETAMINOPHEN [Percocet 5-325 mg] 1 tab PO Q4HR PRN 3 Days #18 tab 07/08/19 [Rx] Follow up Appointment(s)/Referral(s): [facility] [NON-STAFF] - Tom Salinas MD [Medical Doctor] - 2 Weeks Activity/Diet/Wound Care/Special Instructions: -Strict non-weight bearing on your operative leg. Do not remove your splint; Keep splint clean, dry, and intact -Use crutches, knee scooter, or a walker to ambulate after surgery. -Elevate and ice operative leg to help reduce swelling and control pain. -Take pain medications as prescribed. Take Colace as a stool softener. Take aspirin as prescribed for blood clot prevention. -Follow-up appointment with Dr. Salinas in the office in 2 weeks. -Call the office with any questions or concerns, -[facility] will deliver crutches to bedside prior to discharge. Discharge Disposition: HOME SELF-CARE
== END 2019-07-08 15:30 | disposition home or self-care (01) ==
LOC: OR 08:00 → 4SSUR 14:11 → OR 07-07 02:12
PROVIDERS: ADMIT Orthopaedic Surgery; ATTEND Orthopaedic Surgery
DX: S82.875A Nondisplaced pilon fracture of left tibia, initial encounter for closed fracture (principal); X58.XXXA Exposure to other specified factors, initial encounter; F17.210 Nicotine dependence, cigarettes, uncomplicated; M19.072 Primary osteoarthritis, left ankle and foot; Z45.89 Encounter for adjustment and management of other implanted devices
CPT/HCPCS: 27827; 20694; 96372 ×2; 97161; 85025; 82306; 73600; G0378 ×2; C1713; S4990 ×3; J2250; J1100; J2550; J2175; J0690 ×2; J2405; J2001; J1650 ×2; J3010; J1170 ×5; J0330; J2704

== ENCOUNTER → 2019-09-25 | Outpatient (CLI) | payer OTHER | END | disposition home or self-care (01) | LOC: LABWHC1 11:11 | PROVIDERS: ATTEND Orthopaedic Surgery | DX: E55.9 Vitamin D deficiency, unspecified (principal); M25.572 Pain in left ankle and joints of left foot; S82.872D Displaced pilon fracture of left tibia, subsequent encounter for closed fracture with routine healing; Z48.89 Encounter for other specified surgical aftercare; Z98.890 Other specified postprocedural states | CPT/HCPCS: 36415; 82306 ==

== ENCOUNTER 2024-05-31 16:40 | Inpatient (IN) | payer BC ==
--- NOTE | 2024-05-31 16:51 | ED ---
Abdominal Pain HPI - General Chief Complaint: Abdominal Pain Stated Complaint: abd pain Time Seen by Provider: 05/31/24 16:49 Source: patient, EMS Mode of arrival: EMS Limitations: no limitations - History of Present Illness Initial Comments: 48-year-old male with history of daily alcohol use who presents emergency department reporting diffuse abdominal pain. States that the pain started after eating breakfast this morning. Patient had an episode of vomiting at home. Describes it as a sharp shooting sensation. He does admit to alcohol use. He drinks a pint a day. Patient reports to drinking half pint today. No history of pancreatitis. Denies fevers. No chest pain. Denies any numbness, tingling or weakness into his extremities. No chest pain or shortness of breath. He was given 4 mg of morphine, 4 mg of Zofran and 100 mL of saline by EMS. Continues to have 10 out of 10 pain. No history of abdominal surgeries. No other alleviating, precipitating or modifying factors - Related Data Home Medications Medication Instructions Recorded Confirmed Albuterol Sulfate [Albuterol 1 puff INHALATION BID PRN 05/31/24 05/31/24 Sulfate Hfa] Ascorbic Acid [Vitamin C] 1,000 mg PO HS 05/31/24 05/31/24 Fexofenadine HCl [Kathryn Allergy] 180 mg PO HS 05/31/24 05/31/24 Magnesium Citrate(Unknown Dose) 1 tab PO HS 05/31/24 05/31/24 Omeprazole 20 mg PO HS 05/31/24 05/31/24 Potassium Citrate 99 mg PO HS 05/31/24 05/31/24 Previous Rx's Medication Instructions Recorded Folic Acid 1 mg PO DAILY #90 tab 06/03/24 Sennosides/Docusate Sodium [Senna 1 each PO DAILY #30 tab 06/03/24 Plus 8.6-50 mg Tablet] Thiamine [Vitamin B-1] 100 mg PO DAILY #90 tab 06/03/24 predniSONE [Deltasone] 40 mg PO DAILY #6 tab 06/03/24 Allergies Allergy/AdvReac Type Severity Reaction Status Date / Time bee venom protein (honey bee) Allergy Anaphylaxis Verified 05/31/24 20:05 diphenhydramine Allergy Anaphylaxis Verified 05/31/24 20:05 [From Benadryl] doxycycline Allergy Anaphylaxis Verified 05/31/24 20:05 tetracycline Allergy Anaphylaxis Verified 05/31/24 20:05 Review of Systems ROS Statement: Those systems with pertinent positive or pertinent negative responses have been documented in the HPI. ROS Other: All systems not noted in ROS Statement are negative. Past Medical History Past Medical History: No Reported History Additional Past Medical History / Comment(s): pt states arrythmia - thought possibly a-fib - states no meds ., Herniated cervical disc with occasional numness in arms. , pilon fx left tibia/ankle with surgery 06/18/19 with external fixator., pt using walker. History of Any Multi-Drug Resistant Organisms: None Reported Past Surgical History: Orthopedic Surgery Additional Past Surgical History / Comment(s): lasik eye surgery, tubes in ears. ,sinus and deviated septum surgery at 16 years old., Surgery for pilon fx left ankle (06/18/19) Past Anesthesia/Blood Transfusion Reactions: Previous Problems w/ Anesthesia Additional Past Anesthesia/Blood Transfusion Reaction / Comment(s): post op surgery 06/18/19-states pain all over afterwards, states right side of tongue was "smashed"- thought he might have had a seizure., states 2 lower teeth are loose since surgery. Past Psychological History: No Psychological Hx Reported Smoking Status: Current every day smoker Past Alcohol Use History: Daily, Occasional Past Drug Use History: Marijuana - Past Family History Father Family Medical History: Cancer Mother Family Medical History: No Reported History General Exam Limitations: no limitations General appearance: alert, in no apparent distress Head exam: Present: atraumatic, normocephalic, normal inspection Eye exam: Present: normal appearance, PERRL, EOMI. Absent: scleral icterus, conjunctival injection, periorbital swelling ENT exam: Present: normal exam, mucous membranes moist Neck exam: Present: normal inspection. Absent: tenderness, meningismus, lympha denopathy Respiratory exam: Present: normal lung sounds bilaterally. Absent: respiratory distress, wheezes, rales, rhonchi, stridor Cardiovascular Exam: Present: regular rate, normal rhythm, normal heart sounds. Absent: systolic murmur, diastolic murmur, rubs, gallop, clicks GI/Abdominal exam: Present: soft, tenderness (generalized), normal bowel sounds. Absent: distended, guarding, rebound, rigid Extremities exam: Present: normal inspection, full ROM, normal capillary refill. Absent: tenderness, pedal edema, joint swelling, calf tenderness Back exam: Present: normal inspection Neurological exam: Present: alert, oriented X3, CN II-XII intact Psychiatric exam: Present: normal affect, normal mood Skin exam: Present: warm, dry, intact, normal color. Absent: rash Course Vital Signs 05/31/24 05/31/24 05/31/24 16:47 18:13 20:24 Temperature 98.9 F Pulse Rate 69 84 Respiratory 20 16 18 Rate Blood Pressure 173/109 165/105 166/115 O2 Sat by Pulse 97 95 Oximetry 06/01/24 06/01/24 06/01/24 00:06 02:00 03:28 Temperature Pulse Rate 82 Respiratory 20 16 18 Rate Blood Pressure 148/106 131/91 156/105 O2 Sat by Pulse 96 Oximetry 06/01/24 06/01/24 06/01/24 06:02 08:00 09:02 Temperature Pulse Rate 73 70 92 Respiratory 16 14 Rate Blood Pressure 153/104 153/104 O2 Sat by Pulse 96 97 Oximetry 06/01/24 06/01/24 06/01/24 09:12 10:00 11:38 Temperature Pulse Rate 85 74 80 Respiratory 12 14 Rate Blood Pressure 147/110 137/99 O2 Sat by Pulse 98 95 Oximetry 06/01/24 06/01/24 06/01/24 11:53 12:03 14:00 Temperature Pulse Rate 74 76 76 Respiratory 12 Rate Blood Pressure 128/94 O2 Sat by Pulse 96 Oximetry Medical Decision Making - Medical Decision Making Was pt. sent in by a medical professional or institution (, PA, SOAP DRIER OPERATOR, urgent care, hospital, or long-term...) When possible be specific @ -No Did you speak to anyone other than the patient for history (EMS, parent, family, police, friend...)? What history was obtained from this source @ -Spoke with EMS for history Did you review nursing and triage notes (agree or disagree)? Why? @ -I reviewed and agree with nursing and triage notes Were old charts reviewed (outside hosp., previous admission, EMS record, old EKG, old radiological studies, urgent care reports/EKG's, long-term records)? Report findings @ -No old charts were reviewed Differential Diagnosis (chest pain, altered mental status, abdominal pain women, abdominal pain men, vaginal bleeding, weakness, fever, dyspnea, syncope, headache, dizziness, GI bleed, back pain, seizure, CVA, palpatations, mental health, musculoskeletal)? @ -Differential Abdominal Pain Men: Appendicitis, cholecystitis, diverticulosis, ischemic bowel, pancreatitis, hepatitis, UTI, gastroenteritis, AAA, incarcerated hernia, bowel obstruction, constipation, inflammatory bowel, hepatitis, peptic ulcer disease, splenic infarction, perforated viscus, testicular torsion, this is not meant to be an all-inclusive list EKG interpreted by me (3pts min.). @ -Not done X-rays interpreted by me (1pt min.). @ -None done CT interpreted by me (1pt min.). @ -Yes and demonstrates pancreatitis U/S interpreted by me (1pt. min.). @ -None done What testing was considered but not performed or refused? (CT, X-rays, U/S, labs)? Why? @ -None What meds were considered but not given or refused? Why? @ -None Did you discuss the management of the patient with other professionals (professionals i.e. , PA, SOAP DRIER OPERATOR, lab, RT, psych nurse, social worker school, finishing machine operator, teacher, science and operations officer, rifle case repairer)? Give summary @ -Discussed case with Dr. Bergman Was smoking cessation discussed for >3mins.? @ -No Was critical care preformed (if so, how long)? @ -No Were there social determinants of health that impacted care today? How? (Homelessness, low income, unemployed, alcoholism, drug addiction, transportation, low edu. Level, literacy, decrease access to med. care, fdc, rehab)? @ -No Was there de-escalation of care discussed even if they declined (Discuss DNR or withdrawal of care, Hospice)? DNR status @ -No What co-morbidities impacted this encounter? (DM, HTN, Smoking, COPD, CAD, Cancer, CVA, ARF, Chemo, Hep., AIDS, mental health diagnosis, sleep apnea, morbid obesity)? @ -Alcohol abuse Was patient admitted / discharged? Hospital course, mention meds given and route, prescriptions, significant lab abnormalities, going to OR and other pertinent info. @ -Upon arrival patient seen and evaluated in room 27. Thorough history and physical exam was performed. IV access was established. Laboratory studies are conducted. Patient administered fluids, antiemetics and pain medications. Laboratory studies and imaging demonstrate pancreatitis. Patient will be admitted for this diagnosis with fluids and pain medications ordered. GI will be consulted. Patient was agreeable to this and was admitted in stable condition home Undiagnosed new problem with uncertain prognosis? @ -No Drug Therapy requiring intensive monitoring for toxicity (Heparin, Nitro, Insulin, Cardizem)? @ -No Were any procedures done? @ -No Diagnosis/symptom? @ -Acute abdominal pain, acute pancreatitis, history of EtOH abuse Acute, or Chronic, or Acute on Chronic? @ -Acute Uncomplicated (without systemic symptoms) or Complicated (systemic symptoms)? @ -Complicated Side effects of treatment? @ -No Exacerbation, Progression, or Severe Exacerbation? @ -No Poses a threat to life or bodily function? How? (Chest pain, [place], ME, pneumonia, PE, COPD, DKA, ARF, appy, cholecystitis, CVA, Diverticulitis, Homicidal, Suicidal, threat to staff... and all critical care pts) @ -No - Lab Data Result diagrams: 06/03/24 04:00 06/03/24 04:00 Lab Results 05/31/24 05/31/24 05/31/24 Range/Units 16:54 16:54 16:54 WBC 16.3 H (3.8-10.6) k/uL RBC 5.79 (4.30-5.90) m/uL Hgb 17.0 (13.0-17.5) gm/dL Hct 53.2 H (39.0-53.0) % MCV 91.9 (80.0-100.0) fL MCH 29.3 (25.0-35.0) pg MCHC 31.9 (31.0-37.0) g/dL RDW 13.0 (11.5-15.5) % Plt Count 198 (150-450) k/uL MPV 9.8 Immature Gran % (Auto) % Absolute Nucleated RBC % Neutrophils % 86 % Lymphocytes % 8 % Monocytes % 5 % Eosinophils % 1 % Basophils % 0 % Immature Gran # (0.00-0.04) X 10*3/uL Neutrophils # 14.1 H (1.3-7.7) k/uL Lymphocytes # 1.2 (1.0-4.8) k/uL Monocytes # 0.7 (0-1.0) k/uL Eosinophils # 0.2 (0-0.7) k/uL Basophils # 0.1 (0-0.2) k/uL NRBC/100 WBC Diff (0.00-0.01) X 10*3/uL Sodium 139 (137-145) mmol/L Potassium 4.2 (3.5-5.1) mmol/L Chloride 110 H (98-107) mmol/L Carbon Dioxide 20 L (22-30) mmol/L Anion Gap 9 mmol/L BUN 14 (9-20) mg/dL Creatinine 0.82 (0.66-1.25) mg/dL Est GFR (CKD-EPI)AfAm >90 (>60 ml/min/1.73 sqM) Est GFR (CKD-EPI)NonAf >90 (>60 ml/min/1.73 sqM) Glucose 131 H (74-99) mg/dL Plasma Lactic Acid Solomon 1.1 (0.7-2.0) mmol/L Calcium 9.1 (8.4-10.2) mg/dL Total Bilirubin 1.0 (0.2-1.3) mg/dL AST 38 (17-59) U/L ALT 25 (4-49) U/L Alkaline Phosphatase 81 (38-126) U/L Lactate Dehydrogenase (120-246) U/L Total Protein 6.9 (6.3-8.2) g/dL Albumin 4.2 (3.5-5.0) g/dL Globulin g/dL Albumin/Globulin Ratio Lipase 9696 H (23-300) U/L Urine Color Urine Appearance (Clear) Urine pH (5.0-8.0) Ur Specific [place] (1.001-1.035) Urine Protein (Negative) Urine Glucose (UA) (Negative) Urine Ketones (Negative) Urine Blood (Negative) Urine Nitrite (Negative) Urine Bilirubin (Negative) Urine Urobilinogen (<2.0) mg/dL Ur Leukocyte Esterase (Negative) Serum Alcohol <10 mg/dL 06/01/24 06/01/24 06/01/24 Range/Units 03:22 06:50 06:50 WBC 18.06 H (3.8-10.6) k/uL RBC 5.71 H (4.30-5.90) m/uL Hgb 16.8 (13.0-17.5) gm/dL Hct 51.1 H (39.0-53.0) % MCV 89.5 (80.0-100.0) fL MCH 29.4 (25.0-35.0) pg MCHC 32.9 (31.0-37.0) g/dL RDW 13.1 (11.5-15.5) % Plt Count 170 (150-450) k/uL MPV 10.9 Immature Gran % (Auto) 0.80 % Absolute Nucleated RBC 0 % Neutrophils % 85.4 % Lymphocytes % 6.5 % Monocytes % 6.9 % Eosinophils % 0.1 % Basophils % 0.3 % Immature Gran # 0.14 H (0.00-0.04) X 10*3/uL Neutrophils # 15.42 H (1.3-7.7) k/uL Lymphocytes # 1.18 (1.0-4.8) k/uL Monocytes # 1.25 H (0-1.0) k/uL Eosinophils # 0.02 L (0-0.7) k/uL Basophils # 0.05 (0-0.2) k/uL NRBC/100 WBC Diff 0 (0.00-0.01) X 10*3/uL Sodium 138 (137-145) mmol/L Potassium 4.0 (3.5-5.1) mmol/L Chloride 109 H (98-107) mmol/L Carbon Dioxide 24 (22-30) mmol/L Anion Gap 5 mmol/L BUN 10 (9-20) mg/dL Creatinine 0.76 (0.66-1.25) mg/dL Est GFR (CKD-EPI)AfAm >90 (>60 ml/min/1.73 sqM) Est GFR (CKD-EPI)NonAf >90 (>60 ml/min/1.73 sqM) Glucose 127 H (74-99) mg/dL Plasma Lactic Acid Solomon (0.7-2.0) mmol/L Calcium 9.1 (8.4-10.2) mg/dL Total Bilirubin 0.9 (0.2-1.3) mg/dL AST 25 (17-59) U/L ALT 20 (4-49) U/L Alkaline Phosphatase 78 (38-126) U/L Lactate Dehydrogenase (120-246) U/L Total Protein 6.1 L (6.3-8.2) g/dL Albumin 3.6 (3.5-5.0) g/dL Globulin 2.5 g/dL Albumin/Globulin Ratio 1.4 Lipase 8052 H (23-300) U/L Urine Color Colorless Urine Appearance Clear (Clear) Urine pH 6.0 (5.0-8.0) Ur Specific [place] >1.050 H (1.001-1.035) Urine Protein Trace H (Negative) Urine Glucose (UA) Negative (Negative) Urine Ketones 2+ H (Negative) Urine Blood Negative (Negative) Urine Nitrite Negative (Negative) Urine Bilirubin Negative (Negative) Urine Urobilinogen <2.0 (<2.0) mg/dL Ur Leukocyte Esterase Negative (Negative) Serum Alcohol mg/dL 06/01/24 Range/Units 06:50 WBC (3.8-10.6) k/uL RBC (4.30-5.90) m/uL Hgb (13.0-17.5) gm/dL Hct (39.0-53.0) % MCV (80.0-100.0) fL MCH (25.0-35.0) pg MCHC (31.0-37.0) g/dL RDW (11.5-15.5) % Plt Count (150-450) k/uL MPV Immature Gran % (Auto) % Absolute Nucleated RBC % Neutrophils % % Lymphocytes % % Monocytes % % Eosinophils % % Basophils % % Immature Gran # (0.00-0.04) X 10*3/uL Neutrophils # (1.3-7.7) k/uL Lymphocytes # (1.0-4.8) k/uL Monocytes # (0-1.0) k/uL Eosinophils # (0-0.7) k/uL Basophils # (0-0.2) k/uL NRBC/100 WBC Diff (0.00-0.01) X 10*3/uL Sodium (137-145) mmol/L Potassium (3.5-5.1) mmol/L Chloride (98-107) mmol/L Carbon Dioxide (22-30) mmol/L Anion Gap mmol/L BUN (9-20) mg/dL Creatinine (0.66-1.25) mg/dL Est GFR (CKD-EPI)AfAm (>60 ml/min/1.73 sqM) Est GFR (CKD-EPI)NonAf (>60 ml/min/1.73 sqM) Glucose (74-99) mg/dL Plasma Lactic Acid Solomon (0.7-2.0) mmol/L Calcium (8.4-10.2) mg/dL Total Bilirubin (0.2-1.3) mg/dL AST (17-59) U/L ALT (4-49) U/L Alkaline Phosphatase (38-126) U/L Lactate Dehydrogenase 175 (120-246) U/L Total Protein (6.3-8.2) g/dL Albumin (3.5-5.0) g/dL Globulin g/dL Albumin/Globulin Ratio Lipase (23-300) U/L Urine Color Urine Appearance (Clear) Urine pH (5.0-8.0) Ur Specific [place] (1.001-1.035) Urine Protein (Negative) Urine Glucose (UA) (Negative) Urine Ketones (Negative) Urine Blood (Negative) Urine Nitrite (Negative) Urine Bilirubin (Negative) Urine Urobilinogen (<2.0) mg/dL Ur Leukocyte Esterase (Negative) Serum Alcohol mg/dL Disposition Clinical Impression: Alcohol abuse, Pancreatitis Disposition: ADMITTED IP TO THIS [facility] Condition: Stable Is patient prescribed a controlled substance at d/c from ED?: No Time of Disposition: 20:02 Decision to Admit Reason: Admit from EC Decision Date: 05/31/24 Decision Time: 20:02
[2024-05-31 17:10] LABS: Basophils # (A) 0.1 k/uL (0-0.2); Basophils % (A) 0 %; Eosinophils # (A) 0.2 k/uL (0-0.7); Eosinophils % (A) 1 %; HCT 53.2 % (39.0-53.0); Lymphocytes # (A) 1.2 k/uL (1.0-4.8); Lymphocytes % (A) 8 %; MCH 29.3 pg (25.0-35.0); MCHC 31.9 g/dL (31.0-37.0); MCV 91.9 fL (80.0-100.0); Mean Platelet Volume 9.8; Monocytes # (A) 0.7 k/uL (0-1.0); Monocytes % (A) 5 %; Neutrophils # (A) 14.1 k/uL (1.3-7.7); Neutrophils % (A) 86 %; Platelet Count 198 k/uL (150-450); RBC 5.79 m/uL (4.30-5.90); WBC 16.3 k/uL (3.8-10.6)
[2024-05-31] MEDS: HYDROmorphone 1 MG/ML 1 ML SYRINGE IVP STA ×2 (17:33→20:23)
[2024-05-31] MEDS: SODIUM CHLORIDE 0.9% 1,000 ML IV ONE (17:34)
[2024-05-31 17:36] LABS: ALT 25 U/L (4-49); African American GFR (CKD) >90 (>60 ml/min/1.73 sqM); Albumin 4.2 g/dL (3.5-5.0); Alcohol <10 mg/dL; Anion Gap 9 mmol/L; Blood Urea Nitrogen 14 mg/dL (9-20); Calcium 9.1 mg/dL (8.4-10.2); Carbon Dioxide 20 mmol/L (22-30); Chloride 110 mmol/L (98-107); Glucose 131 mg/dL (74-99); Non-African American GFR(CKD) >90 (>60 ml/min/1.73 sqM); Sodium 139 mmol/L (137-145); Total Protein 6.9 g/dL (6.3-8.2)
[2024-05-31 18:32] LABS: AST 38 U/L (17-59); Alkaline Phosphatase 81 U/L (38-126); Potassium 4.2 mmol/L (3.5-5.1)
[2024-05-31 18:36] LABS: Lipase 9696 U/L (23-300)
--- NOTE | 2024-05-31 19:06 | CT ---
EXAMINATION TYPE: CT abdomen pelvis w con CT DLP: 926.7 mGycm, Automated exposure control for dose reduction was used. DATE OF EXAM: 05/31/2024 6:30 PM COMPARISON: CT abdomen pelvis most recent from CLINICAL INDICATION:Male, 48 years old with history of diffuse abd pain, leukocytosis; Alcoholic. nk half a pint of alcohol today. Abdominal pain. TECHNIQUE: Axial CT abdomen pelvis w con;Sagittal and coronal reformats were created on a separate w orkstation. Contrast used:100 ml mL of Isovue 300 with IV Contrast, (none if empty) Oral contrast used: without Oral Contrast (none if empty) FINDINGS: LOWER CHEST: Unremarkable ABDOMEN LIVER: Diffusely hypoattenuating parenchyma. GALLBLADDER AND BILE DUCTS: No evidence for ductal dilation. No evidence for choledocholithiasis. PANCREAS: Extensive fat stranding changes in the upper abdomen thought to be surrounding the pancreas . No organizing fluid collections. The pancreatic parenchyma enhances rather uniformly SPLEEN: Unremarkable. ADRENAL GLANDS: Unremarkable. KIDNEYS AND URETERS: No evidence of hydronephrosis or renal calculus. The ureters are unremarkable. PELVIS BLADDER: Unremarkable REPRODUCTIVE: Unremarkable. ABDOMEN & PELVIS STOMACH AND BOWEL: No evidence of bowel obstruction. Few scattered colonic diverticula. PERITONEUM/RETROPERITONEUM: No evidence of pneumoperitoneum or free fluid. VASCULATURE: No evidence of aortic aneurysm. MUSCULOSKELETAL: No acute osseous abnormalities LYMPH NODES: No gross evidence for lymphadenopathy. SOFT TISSUE/ABDOMINAL WALL: Unremarkable IMPRESSION: 1. Findings compatible with acute uncomplicated pancreatitis. No evidence for necrosis. 2. Hepatic steatosis. 3. Colonic diverticulosis.
[2024-05-31] MEDS ORDERED: NALOXONE 0.4 MG/ML 1 ML VIAL IV PRN (20:09)
[2024-05-31] MEDS: SODIUM CHLORIDE 0.9% 1,000 ML IV SCH (20:23)
--- NOTE | 2024-05-31 22:53 | XR ---
EXAMINATION TYPE: XR chest 1V portable DATE OF EXAM: 05/31/2024 CLINICAL HISTORY: Wheezing TECHNIQUE: Single AP frontal upright view of the chest is obtained. COMPARISON: Chest x-ray June 18, 2019 FINDINGS: There is no focal air space opacity, pleural effusion, or pneumothorax seen. The cardiac silhouette size is stable and within normal limits. The osseous structures are intact. IMPRESSION: No acute cardiopulmonary process. No significant change from prior.
--- NOTE | 2024-05-31 23:41 | P.HPIM ---
History of Present Illness H&P Date: 05/31/24 Chief Complaint: Abdominal pain Patient is a 48-year-old male with past medical history of tobacco abuse and EtOH abuse who presents to ER with progressively worsening abdominal pain this started 2 days ago. Since 2 days, patient reports that the pain has been co nstant, nonradiating, 2 out of 10, and epigastric region with 4 episodes of diarrhea. 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 Patient went to take a nap and woke up around 1 PM with sudden onset diffuse abdominal which he reports as constant, 10 out of 10, radiated to the back associated with 2 episodes of nonbloody vomiting. Patient reports no previous episodes of such abdominal pain. Denies previous episodes of pancreatitis. Patient has been drinking a pint of vodka daily for the past 4 years. Patient denies auditory or visual hallucination. Denies tremors, numbness, tingling or weakness in upper and lower extremities, chest pain, heart palpitation, and diaphoresis. Patient also reports progressively worsening mild shortness of breath with productive cough since 1 year. Patient has a significant smoking history of 1 pack/day since 40 years. Patient has been using his girlfriend's albuterol inhaler as needed which mildly alleviates his symptoms. CT abdomen and pelvis in ER shows findings compatible with acute uncomplicated pancreatitis with no evidence of necrosis. Remarkable for hepatic steatosis and colonic diverticulosis. Chest x-ray in the ER shows no acute cardiopulmonary process. Vitals: Tmax 98.9 F, heart rate 84, respiratory rate 18, blood pressure 166/115, oxygen saturation 90% on room air. Laboratory evaluation shows lipase 9696, WBC 16.3, hemoglobin 17.0, hematocrit 53.2, platelet count 198, sodium 139, potassium 4.8, chloride 110, bicarb 20, glucose 131. Review of systems: Pertinent positives and negatives as discussed in HPI, a complete review of systems was performed and all other systems are negative. Social history: Tobacco: 1 pack/day x 40 years Alcohol: A pint of vodka a day x 4 years Recreational drugs: None Travel: None Occupation: Unknown Family History: Noncontributory Physical examination: Vital signs reviewed General: non toxic, no distress, appears at stated age, normal weight Derm: no unusual rashes/lesions, warm Head: atraumatic, normocephalic, symmetric Eyes: EOMI, no lid lag, anicteric sclera, pupils equal round reactive to light ENT: Nose and ears atraumatic Neck: No cervical lymphadenopathy, trachea midline, supple Mouth: no lip lesion, mucus membranes moist Cardiovascular: S1S2 reg, no murmur, positive dorsalis pedis pulse bilateral, no edema Lungs: CTA bilateral, no rhonchi, no rales, no accessory muscle use Abdominal: epigastric tenderness upon deep palpation, nondistended, no guarding, bowel sounds positive Ext: muscle strength 5 out of 5 in all 4 extremities grossly, no gross muscle atrophy, no contractures, Neuro: CN II-XI grossly intact, no gross focal neuro deficits Psych: Alert, oriented, appropriate affect Assessment/Plan: 48-year-old male with past medical history of undiagnosed asthma presents to ER with progressively worsening abdominal pain this started 2 days ago complicated with acute onset sharp generalized abdominal pain, admitted for pancreatitis. #Acute pancreatitis, likely due to alcohol abuse Lipase 9696 U/L CT abdomen and pelvis in ER shows findings compatible with acute uncomplicated pancreatitis with no evidence of necrosis. Continue with IV normal saline at 130 cc/h GI consulted Continue to monitor lipase levels Clear liquid diet for now in light of minimal nausea Antiemetics with Zofran 4 mg IV push every 8 hours as needed Continue with pain control with Dilaudid 1 mg IV push every 3 hours as needed # Shortness of breath, suspect exacerbation of undiagnosed COPD Continue with DuoNebs [id number] and as needed Ordered prednisone 40 mg p.o. daily Continue to monitor oxygen saturation # Leukocytosis, likely secondary to acute stressor with no source of active infection at this time WBC 16.3 Continue monitoring CBC #Hyperglycemia Check HbA1c Started on sliding scale short acting insulin #GERD Protonix 40 mg po qd DVT prophylaxis: Lovenox 40 mg subcu daily The patient is admitted with an anticipated greater than 2 midnight stay for evaluation of acute pancreatitis CODE STATUS: Full code Discussed with: Patient Anticipated discharge place: Home Past Medical History Past Medical History: No Reported History Additional Past Medical History / Comment(s): pt states arrythmia - thought possibly a-fib - states no meds ., Herniated cervical disc with occasional numness in arms. , pilon fx left tibia/ankle with surgery 06/18/19 with external fixator., pt using walker. History of Any Multi-Drug Resistant Organisms: None Reported Past Surgical History: Orthopedic Surgery Additional Past Surgical History / Comment(s): lasik eye surgery, tubes in ears. ,sinus and deviated septum surgery at 16 years old., Surgery for pilon fx left ankle (06/18/19) Past Anesthesia/Blood Transfusion Reactions: Previous Problems w/ Anesthesia Additional Past Anesthesia/Blood Transfusion Reaction / Comment(s): post op surgery 06/18/19-states pain all over afterwards, states right side of tongue was "smashed"- thought he might have had a seizure., states 2 lower teeth are loose since surgery. Past Psychological History: No Psychological Hx Reported Smoking Status: Current every day smoker Past Alcohol Use History: Daily, Occasional Past Drug Use History: Marijuana - Past Family History Father Family Medical History: Cancer Mother Family Medical History: No Reported History Medications and Allergies Home Medications Medication Instructions Recorded Confirmed Type Albuterol Sulfate [Albuterol 1 puff INHALATION BID PRN 05/31/24 05/31/24 History Sulfate Hfa] Ascorbic Acid [Vitamin C] 1,000 mg PO HS 05/31/24 05/31/24 History Fexofenadine HCl [Kathryn Allergy] 180 mg PO HS 05/31/24 05/31/24 History Magnesium Citrate(Unknown Dose) 1 tab PO HS 05/31/24 05/31/24 History Omeprazole 20 mg PO HS 05/31/24 05/31/24 History Omeprazole 20 mg PO HS 05/31/24 05/31/24 History Potassium Citrate 99 mg PO HS 05/31/24 05/31/24 History Allergies Allergy/AdvReac Type Severity Reaction Status Date / Time bee venom protein (honey bee) Allergy Anaphylaxis Verified 05/31/24 20:05 diphenhydramine Allergy Anaphylaxis Verified 05/31/24 20:05 [From Benadryl] doxycycline Allergy Anaphylaxis Verified 05/31/24 20:05 tetracycline Allergy Anaphylaxis Verified 05/31/24 20:05 Physical Exam Vitals: Vital Signs Temp Pulse Resp BP Pulse Ox 05/31/24 20:24 18 166/115 05/31/24 18:13 84 16 165/105 95 05/31/24 16:47 98.9 F 69 20 173/109 97 Intake and Output 05/31/24 05/31/24 06/01/24 14:59 22:59 06:59 Other: Weight 78.018 kg Results CBC & Chem 7: 05/31/24 16:54 05/31/24 16:54 Labs: Abnormal Lab Results - Last 24 Hours (Table) 05/31/24 05/31/24 Range/Units 16:54 16:54 WBC 16.3 H (3.8-10.6) k/uL Hct 53.2 H (39.0-53.0) % Neutrophils # 14.1 H (1.3-7.7) k/uL Chloride 110 H (98-107) mmol/L Carbon Dioxide 20 L (22-30) mmol/L Glucose 131 H (74-99) mg/dL Lipase 9696 H (23-300) U/L
[2024-05-31] MEDS: HYDROmorphone 1 MG/ML 1 ML SYRINGE IVP PRN (23:58)
[2024-06-01] MEDS ORDERED: IPRATROPIUM-ALBUTEROL 3 ML NEB INHALATION PRN (00:19)
[2024-06-01] MEDS: predniSONE 20 MG TAB PO STA (03:17)
[2024-06-01 03:40] LABS: Appearance,Urine Clear (Clear); Bilirubin,Urine Negative (Negative); Blood,Urine Negative (Negative); Color,Urine Colorless; Glucose,Urine (UA) Negative (Negative); Ketones,Urine 2+ (Negative); Leukocyte Esterase,Urine Negative (Negative); Nitrite,Urine Negative (Negative); Protein,Urine Trace (Negative); Urobilinogen,Urine <2.0 mg/dL (<2.0)
[2024-06-01 04:05] LABS: Specific Gravity,Urine >1.050 (1.001-1.035)
[2024-06-01] MEDS ORDERED: DEXTROSE 50% SYRINGE 50 ML IVP PRN ×2 (05:36)
[2024-06-01 07:33] LABS: ALT 20 U/L (4-49); AST 25 U/L (17-59); African American GFR (CKD) >90 (>60 ml/min/1.73 sqM); Albumin 3.6 g/dL (3.5-5.0); Albumin/Globulin Ratio 1.4; Alkaline Phosphatase 78 U/L (38-126); Anion Gap 5 mmol/L; Blood Urea Nitrogen 10 mg/dL (9-20); Calcium 9.1 mg/dL (8.4-10.2); Carbon Dioxide 24 mmol/L (22-30); Chloride 109 mmol/L (98-107); Globulin 2.5 g/dL; Glucose 127 mg/dL (74-99); Non-African American GFR(CKD) >90 (>60 ml/min/1.73 sqM); Sodium 138 mmol/L (137-145); Total Bilirubin 0.9 mg/dL (0.2-1.3); Total Protein 6.1 g/dL (6.3-8.2)
[2024-06-01 07:56] LABS: Lipase 8052 U/L (23-300)
[2024-06-01] MEDS: IPRATROPIUM-ALBUTEROL 3 ML NEB INHALATION SCH (09:00)
[2024-06-01] MEDS: INSULIN ASPART (NovoLOG) 100 UNIT/ML VIAL SQ SCH (09:07)
[2024-06-01 09:08] LABS: Glucose,Whole Blood 115 mg/dL (70-110)
[2024-06-01] MEDS: ENOXAPARIN 40 MG/0.4 ML SYRINGE SQ SCH (09:25)
[2024-06-01] MEDS ORDERED: ACETAMINOPHEN TAB 325 MG TAB PO PRN (09:25)
[2024-06-01] MEDS: PANTOPRAZOLE 40 MG TABLET PO SCH (09:25)
[2024-06-01] MEDS: predniSONE 20 MG TAB PO SCH (09:25)
[2024-06-01] MEDS ORDERED: LORazepam 1 MG TAB PO PRN ×3 (09:28)
[2024-06-01] MEDS ORDERED: LORazepam 0.5 MG TAB PO PRN (09:28)
[2024-06-01 10:27] LABS: Basophils # (A) 0.05 X 10*3/uL (0.00-0.10); Basophils % (A) 0.3 %; Eosinophils # (A) 0.02 X 10*3/uL (0.04-0.35); Eosinophils % (A) 0.1 %; HCT 51.1 % (39.6-50.0); HGB 16.8 g/dL (13.0-17.0); Lymphocytes # (A) 1.18 X 10*3/uL (0.90-5.00); Lymphocytes % (A) 6.5 %; MCH 29.4 pg (27.0-32.0); MCHC 32.9 g/dL (32.0-37.0); MCV 89.5 FL (80.0-97.0); Mean Platelet Volume 10.9 FL (9.5-12.2); Monocytes # (A) 1.25 X 10*3/uL (0.20-1.00); Monocytes % (A) 6.9 %; NRBC Per 100 WBC 0 X 10*3/uL (0.00-0.01); Neutrophils # (A) 15.42 X 10*3/uL (1.80-7.70); Neutrophils % (A) 85.4 %; Platelet Count 170 X 10*3/uL (140-440); RBC 5.71 X 10*6/uL (4.40-5.60); RDW 13.1 % (11.5-14.5); WBC 18.06 X 10*3/uL (4.50-10.00)
[2024-06-01] MEDS: FOLIC ACID 1 MG TAB PO SCH (11:09)
[2024-06-01] MEDS: ONDANSETRON 4 MG/2 ML VIAL IVP PRN (11:19)
[2024-06-01] MEDS: LACTATED RINGERS 1,000 ML IV SCH (11:19)
[2024-06-01] MEDS: THIAMINE 100 MG/ML 2 ML VIAL IM STA (11:23)
--- NOTE | 2024-06-01 14:52 | P.CONS ---
History of Present Illness - Reason for Consult Consult date: 06/01/24 Pancreatitis, etoh abuse Requesting physician: Luz Bowling - Chief Complaint Abdominal pain - History of Present Illness This is a pleasant 48-year-old male who presented to the emergency department yesterday evening with complaints of severe abdominal pain. He states the onset was sudden earlier in the day he tried taking Tums, Pepto-Bismol and pain did not improve and actually had gotten worse. He called EMS to take him to the emergency department. He has history of alcoholism and states he has been drinking daily for many years. Labs were consistent with elevated lipase in the 8999, he had a CT of the abdomen pelvis that showed acute uncomplicated pancrea titis. Gastroenterology was consulted for pancreatitis and alcohol abuse. He states that he drinks a pint a day for many years. Denies any previous history of pancreatitis. Abdominal pain a little bit better than when he came in but still quite uncomfortable. He had 1 episode of vomiting yesterday none since then. He has been on clear liquid diet and just having small sips of water and tolerating it. Denies any fevers, chills, shortness of breath or chest pain. He has been afebrile. LFTs normal, repeat lipase 8052 Review of Systems REVIEW OF SYSTEMS: CARDIOPULMONARY: No chest pain or shortness of breath. Gastrointestinal: Abdominal pain. No nausea or vomiting. No hematemesis, coffee-ground emesis. No rectal bleeding, or melena. GENITOURINARY: No dysuria or hematuria. MUSCULOSKELETAL: Reports normal range of motion., Joint pain. SKIN: No rashes. No jaundice. ENDOCRINE: No chills, fevers. No excessive weight gain or loss. No polydipsia or polyuria. PSYCHIATRIC: Unremarkable. NEUROLOGY: No change in mental status. Denies dizziness, headache. ENT: Vision unremarkable. CONSTITUTIONAL: No recent weight loss. No fever, chills, night sweats. Past Medical History Past Medical History: No Reported History Additional Past Medical History / Comment(s): pt states arrythmia - thought possibly a-fib - states no meds ., Herniated cervical disc with occasional numness in arms. , pilon fx left tibia/ankle with surgery 06/18/19 with external fixator., pt using walker. History of Any Multi-Drug Resistant Organisms: None Reported Past Surgical History: Orthopedic Surgery Additional Past Surgical History / Comment(s): lasik eye surgery, tubes in ears. ,sinus and deviated septum surgery at 16 years old., Surgery for pilon fx left ankle (06/18/19) Past Anesthesia/Blood Transfusion Reactions: Previous Problems w/ Anesthesia Additional Past Anesthesia/Blood Transfusion Reaction / Comm: post op surgery 06/18/19-states pain all over afterwards, states right side of tongue was "smashed"- thought he might have had a seizure., states 2 lower teeth are loose since surgery. Past Psychological History: No Psychological Hx Reported Smoking Status: Current every day smoker Past Alcohol Use History: Daily, Occasional Past Drug Use History: Marijuana - Past Family History Father Family Medical History: Cancer Mother Family Medical History: No Reported History Medications and Allergies Home Medications Medication Instructions Recorded Confirmed Type Albuterol Sulfate [Albuterol 1 puff INHALATION BID PRN 05/31/24 05/31/24 History Sulfate Hfa] Ascorbic Acid [Vitamin C] 1,000 mg PO HS 05/31/24 05/31/24 History Fexofenadine HCl [Kathryn Allergy] 180 mg PO HS 05/31/24 05/31/24 History Magnesium Citrate(Unknown Dose) 1 tab PO HS 05/31/24 05/31/24 History Omeprazole 20 mg PO HS 05/31/24 05/31/24 History Omeprazole 20 mg PO HS 05/31/24 05/31/24 History Potassium Citrate 99 mg PO HS 05/31/24 05/31/24 History Allergies Allergy/AdvReac Type Severity Reaction Status Date / Time bee venom protein (honey bee) Allergy Anaphylaxis Verified 05/31/24 20:05 diphenhydramine Allergy Anaphylaxis Verified 05/31/24 20:05 [From Benadryl] doxycycline Allergy Anaphylaxis Verified 05/31/24 20:05 tetracycline Allergy Anaphylaxis Verified 05/31/24 20:05 Physical Exam Vitals: Vital Signs Temp Pulse Resp BP Pulse Ox 06/01/24 06:02 73 16 153/104 96 06/01/24 03:28 82 18 156/105 96 06/01/24 02:00 16 131/91 06/01/24 00:06 20 148/106 05/31/24 20:24 18 166/115 05/31/24 18:13 84 16 165/105 95 05/31/24 16:47 98.9 F 69 20 173/109 97 Intake and Output 05/31/24 06/01/24 06/01/24 22:59 06:59 14:59 Other: Weight 78.018 kg General appearance: The patient is alert, oriented, appears in no acute distress. HET: Head is normocephalic and atraumatic. Conjunctiva pink. Sclera anicteric. Neck: Supple without lymphadenopathy. Trachea midline. Heart: Regular. Lungs: Equal expansion, normal respiratory effort. Abdomen: Soft, right upper quadrant and epigastric tenderness, nondistended. Skin: No rashes. No jaundice. Extremities: Normal skin color and turgor. No pedal edema. Neurological: No focal deficits. Alert and oriented x3. Results CBC & Chem 7: 06/01/24 06:50 06/01/24 06:50 Labs: Abnormal Lab Results - Last 24 Hours (Table) 05/31/24 05/31/24 06/01/24 Range/Units 16:54 16:54 03:22 WBC 16.3 H (3.8-10.6) k/uL Hct 53.2 H (39.0-53.0) % Neutrophils # 14.1 H (1.3-7.7) k/uL Chloride 110 H (98-107) mmol/L Carbon Dioxide 20 L (22-30) mmol/L Glucose 131 H (74-99) mg/dL Total Protein (6.3-8.2) g/dL Lipase 9696 H (23-300) U/L Ur Specific [place] >1.050 H (1.001-1.035) Urine Protein Trace H (Negative) Urine Ketones 2+ H (Negative) 06/01/24 Range/Units 06:50 WBC (3.8-10.6) k/uL Hct (39.0-53.0) % Neutrophils # (1.3-7.7) k/uL Chloride 109 H (98-107) mmol/L Carbon Dioxide (22-30) mmol/L Glucose 127 H (74-99) mg/dL Total Protein 6.1 L (6.3-8.2) g/dL Lipase 8052 H (23-300) U/L Ur Specific [place] (1.001-1.035) Urine Protein (Negative) Urine Ketones (Negative) Comments: CT abdomen pelvis with contrast reports findings compatible with acute uncomplicated pancreatitis. No evidence for necrosis. Hepatic steatosis. Colonic diverticulosis. Assessment and Plan (1) Acute alcoholic pancreatitis Narrative/Plan: 48-year-old male with a longstanding history of alcohol abuse who admits to drinking a pint daily presents for acute onset right upper quadrant and epigastric pain. LFTs normal, lipase elevated [address] abdomen pelvis consistent with acute uncomplicated pancreatitis. All likely secondary to alcohol abuse. No further workup indicated. Continue with aggressive IV hydration and pain medication. Discussed with patient importance of alcohol abstinence. Current Visit: Yes Status: Acute Code(s): K85.20 - ALCOHOL INDUCED ACUTE PANCREATITIS WITHOUT NECROSIS OR INFCT SNOMED Code(s): 071327159 (2) Alcohol abuse Current Visit: Yes Status: Acute Code(s): F10.10 - ALCOHOL ABUSE, UNCOMPLICATED SNOMED Code(s): 04591822 (3) Leukocytosis Current Visit: Yes Status: Acute Code(s): D72.829 - ELEVATED WHITE BLOOD CELL COUNT, UNSPECIFIED SNOMED Code(s): 040912409 Plan: 1. Continue symptomatic and supportive care 2. Patient may continue with clear liquid diet, discussed with him in moderation 3. Continue aggressive IV hydration 4. Pain medication as needed 5. Antiemetics as needed 6. Alcohol abstinence 7. [facility] protocol monitor for alcohol withdrawal. 8. Repeat lipase tomorrow Thank you for this consultation, we will continue to follow. Dr. Alexey Causey I agree with the dictator's note, documented as a scribe by Genesis Poon.
--- NOTE | 2024-06-01 16:03 | P.PN ---
Subjective Progress Note Date: 06/01/24 Subjective: Patient seen and examined at bedside. No acute events overnight. Educated patient about chronic alcohol use. Says would like to quit. Abdominal pain 5 out of 10. Pertinent positives and negatives as discussed above, a complete review of systems was performed and all other systems are negative. Vitals: Signs Reviewed Physical Exam: General: nontoxic, no distress, appears at stated age Derm: warm, dry, intact Head: atraumatic, normocephalic, symmetric Eyes: EOMI, no lid lag, anicteric sclera Mouth: no lip lesion, mucus membranes moist Cardiovascular: S1 S2 reg, no murmur, rubs, or gallops Lungs: CTA bilateral, no rhonchi, no rales, no accessory muscle use Abdominal: soft, non-tender to palpataion, no appreciable organomegaly Extremities: no gross muscle atrophy, no edema, no contractures Neuro: Alert, Oriented, CNII-XII grossly intact, gait normal Psych: well appearing, appropriate affect Data Received Today: Pertinent Labs: WBC 18.06, Hgb 16.8 glucose 115, lipase 8052. UA negative. LDH 175 Imaging: No new imaging Assessment/Plan: 48-year-old male with past medical history of chronic alcohol abuse and nicotine abuse presents to with abdominal pain this started 2 days ago complicated with acute onset sharp generalized abdominal pain, admitted for pancreatitis. Acute pancreatitis, likely due to alcohol abuse Goodman's criteria to determine severity. +1 on admission. Will evaluate in 48 hours Lipase levels trending down. Will continue to monitor. CT abdomen and pelvis in ER shows findings compatible with acute uncomplicated pancreatitis with no evidence of necrosis. Switched IV normal saline to lactated Ringer's 120 cc/hr Clear liquid diet Will will try to advance diet if he can tolerate food. Antiemetics with Zofran 4 mg IV push every 8 hours as needed Pain management with Dilaudid 1 mg IV push every 3 hours as needed. Ac etaminophen 650 mg PO q6hr prn. [place] 5-325 PO q6hr prn for moderate pain. LDH 175 Will monitor BUN, CR, HCT. Monitor vitals. GI consulted, note reviewed, continue current management Chronic alcohol abuse [facility] protocol. Monitor for acute alcohol withdrawal. -Monitor for sedation with Ativan Shortness of breath, suspect exacerbation of undiagnosed COPD Continue with DuoNebs [id number] and as needed Ordered prednisone 40 mg p.o. daily Continue to monitor oxygen saturation Leukocytosis, likely secondary to acute stressor with no source of active infection at this time WBC 16.3 Continue monitoring CBC Hyperglycemia Check HbA1c Started on sliding scale short acting insulin GERD Protonix 40 mg po qd DVT prophylaxis: Lovenox 40 mg subcu daily The patient is admitted with an anticipated greater than 2 midnight stay for evaluation of acute pancreatitis CODE STATUS: Full code Discussed with: Patient Anticipated discharge place: Home F: LR at 120 cc/hr E: Replete as needed N: Clear liquid diet A: Fall precautions DVT ppx: Lovenox 40 mg SQ Code status: Full Anticipated discharge place: Pending clinical course Anticipated discharge time: Pending clinical course I have seen and evaluated the patient today. Discussed with the resident and agree with the residents finding and plan as documented in the resident's note. Changes highlighted in blue font. Objective - Vital Signs Vital signs: Vital Signs Temp 98.9 F 05/31/24 16:47 Pulse 73 06/01/24 06:02 Resp 16 06/01/24 06:02 BP 153/104 06/01/24 06:02 Pulse Ox 96 06/01/24 06:02 FiO2 Intake & Output 05/31/24 06/01/24 06/01/24 18:59 06:59 18:59 Weight 78.018 kg - Labs CBC & Chem 7: 06/01/24 06:50 06/01/24 06:50 Labs: Abnormal Lab Results - Last 24 Hours (Table) 05/31/24 05/31/24 06/01/24 Range/Units 16:54 16:54 03:22 WBC 16.3 H (3.8-10.6) k/uL Hct 53.2 H (39.0-53.0) % Neutrophils # 14.1 H (1.3-7.7) k/uL Chloride 110 H (98-107) mmol/L Carbon Dioxide 20 L (22-30) mmol/L Glucose 131 H (74-99) mg/dL Lipase 9696 H (23-300) U/L Ur Specific [place] >1.050 H (1.001-1.035) Urine Protein Trace H (Negative) Urine Ketones 2+ H (Negative)
[2024-06-01 19:39] LABS: Glucose,Whole Blood 172 mg/dL (70-110)
[2024-06-02] MEDS: THIAMINE 100 MG TAB PO SCH (08:57)
[2024-06-02 11:02] LABS: HGB 14.6 g/dL (13.0-17.0); MCH 29.9 pg (27.0-32.0); MCHC 33.2 g/dL (32.0-37.0); MCV 90.2 FL (80.0-97.0); Mean Platelet Volume 11.1 FL (9.5-12.2); NRBC Per 100 WBC 0 X 10*3/uL (0.00-0.01); Platelet Count 148 X 10*3/uL (140-440); RBC 4.88 X 10*6/uL (4.40-5.60); RDW 13.3 % (11.5-14.5); WBC 18.35 X 10*3/uL (4.50-10.00)
[2024-06-02 11:13] LABS: ALT 15 U/L (10-49); AST 19 U/L (14-35); Albumin 3.6 g/dL (3.8-4.9); Alkaline Phosphatase 69 U/L (41-126); BUN/Creat Ratio 7.22 Ratio (12.00-20.00); Blood Urea Nitrogen 6.5 mg/dL (9.0-27.0); Calcium 9.1 mg/dL (8.7-10.3); Chloride 106 mmol/L (96-109); Glucose 113 mg/dL (70-110); Sodium 141 mmol/L (135-145); Total Bilirubin 0.4 mg/dL (0.3-1.2); Total Protein 5.6 g/dL (6.2-8.2)
[2024-06-02 11:48] LABS: Basophils # (A) 0.03 X 10*3/uL (0.00-0.10); Basophils % (A) 0.2 %; Eosinophils # (A) 0 X 10*3/uL (0.04-0.35); Eosinophils % (A) 0 %; Lymphocytes # (A) 1.47 X 10*3/uL (0.90-5.00); Monocytes # (A) 1.56 X 10*3/uL (0.20-1.00); Monocytes % (A) 8.5 %; Neutrophils # (A) 15.21 X 10*3/uL (1.80-7.70); Neutrophils % (A) 82.9 %; RBC Morphology Normal (Normal)
--- NOTE | 2024-06-02 11:49 | P.PN ---
Subjective Progress Note Date: 06/02/24 Principal diagnosis: acute pancreatitis This is a pleasant 48-year-old male who presented to the emergency department yesterday evening with complaints of severe abdominal pain. He states the onset was sudden earlier in the day he tried taking Tums, Pepto-Bismol and pain did no t improve and actually had gotten worse. He called EMS to take him to the emergency department. He has history of alcoholism and states he has been drinking daily for many years. Labs were consistent with elevated lipase in the 8999, he had a CT of the abdomen pelvis that showed acute uncomplicated pancreatitis. Gastroenterology was consulted for pancreatitis and alcohol abuse. He states that he drinks a pint a day for many years. Denies any previous history of pancreatitis. Abdominal pain a little bit better than when he came in but still quite uncomfortable. He had 1 episode of vomiting yesterday none since then. He has been on clear liquid diet and just having small sips of water and tolerating it. Denies any fevers, chills, shortness of breath or chest pain. He has been afebrile. LFTs normal, repeat lipase 8052 06/02/2024 Seen and examined today as a follow-up. She states abdominal pain slightly better on still having some nausea. States yesterday evening for he drank a lot of chicken broth and then became nauseatedand more pain. Lipase improved to 906, LFTs normal. Objective - Vital Signs Vital signs: Vital Signs Temp 98.6 F 06/02/24 02:32 Pulse 87 06/02/24 02:32 Resp 16 06/02/24 02:32 BP 131/83 06/02/24 02:32 Pulse Ox 95 06/02/24 02:32 FiO2 Intake & Output 06/01/24 06/01/24 06/02/24 06:59 18:59 06:59 Intake Total 485 Balance 485 Weight 78.018 kg Intake: Oral 485 Other: Voiding Method Toilet # Voids 3 - Exam General appearance: The patient is alert, oriented, appears in no acute distress. HET: Head is normocephalic and atraumatic. Conjunctiva pink. Sclera anicteric. Neck: Supple without lymphadenopathy. Abdomen: Soft, right upper quadrant and epigastric tenderness, nondistended with bowel sounds. No guarding or rigidity. Extremities: Normal skin color and turgor. No pedal edema Skin: No rashes, no jaundice Neurological: No focal deficits. Alert and oriented. - Labs CBC & Chem 7: 06/02/24 04:30 06/02/24 04:30 Labs: Abnormal Lab Results - Last 24 Hours (Table) 06/01/24 06/01/24 06/01/24 Range/Units 06:50 06:50 09:06 WBC 18.06 H (4.50-10.00) X 10*3/uL RBC 5.71 H (4.40-5.60) X 10*6/uL Hct 51.1 H (39.6-50.0) % Immature Gran # 0.14 H (0.00-0.04) X 10*3/uL Neutrophils # 15.42 H (1.80-7.70) X 10*3/uL Monocytes # 1.25 H (0.20-1.00) X 10*3/uL Eosinophils # 0.02 L (0.04-0.35) X 10*3/uL Chloride 109 H (98-107) mmol/L Glucose 127 H (74-99) mg/dL POC Glucose (mg/dL) 115 H (70-110) mg/dL Total Protein 6.1 L (6.3-8.2) g/dL Lipase 8052 H (23-300) U/L 06/01/24 Range/Units 19:38 WBC (4.50-10.00) X 10*3/uL RBC (4.40-5.60) X 10*6/uL Hct (39.6-50.0) % Immature Gran # (0.00-0.04) X 10*3/uL Neutrophils # (1.80-7.70) X 10*3/uL Monocytes # (0.20-1.00) X 10*3/uL Eosinophils # (0.04-0.35) X 10*3/uL Chloride (98-107) mmol/L Glucose (74-99) mg/dL POC Glucose (mg/dL) 172 H (70-110) mg/dL Total Protein (6.3-8.2) g/dL Lipase (23-300) U/L Assessment and Plan (1) Acute alcoholic pancreatitis Narrative/Plan: 48-year-old male with a longstanding history of alcohol abuse who admits to drinking a pint daily presents for acute onset right upper quadrant and epigastric pain. LFTs normal, lipase elevated [address] abdomen pelvis consistent with acute uncomplicated pancreatitis. All likely secondary to alcohol abuse. No further workup indicated. Continue with aggressive IV hydration and pain medication. Discussed with patient importance of alcohol abstinence. Current Visit: Yes Status: Acute Code(s): K85.20 - ALCOHOL INDUCED ACUTE PANCREATITIS WITHOUT NECROSIS OR INFCT SNOMED Code(s): 830005236 (2) Alcohol abuse Current Visit: Yes Status: Acute Code(s): F10.10 - ALCOHOL ABUSE, UNCOMPLICATED SNOMED Code(s): 89267081 (3) Leukocytosis Current Visit: Yes Status: Acute Code(s): D72.829 - ELEVATED WHITE BLOOD CELL COUNT, UNSPECIFIED SNOMED Code(s): 719349017 Plan: 1. Continue symptomatic and supportive care 2. Patient may continue with clear liquid diet, Mantz slowly as tolerated 3. Continue aggressive IV hydration 4. Pain medication as needed 5. Antiemetics as needed 6. Alcohol abstinence 7. [facility] protocol monitor for alcohol withdrawal. 8. Anticipate discharge in 48-72 hours Thank you for allowing us to participate in the care of the patient, the GI service will sign off, gastroenterology will not be available at the hospital this weekend and through next week. If further evaluation by gastroenterology is required the patient will need transfer as per the primary team's discretion. Dr. Alexey Causey I agree with the dictator's note, documented as a scribe by Genesis Poon.
--- NOTE | 2024-06-02 16:17 | P.PN ---
Subjective Progress Note Date: 06/02/24 Subjective: Patient seen and examined at bedside. No acute events overnight. Abdominal pain 5 out of 10. Tolerating liquid diet. Pertinent positives and negatives as discussed above, a complete review of systems was performed and all other systems are negative. Vitals: Signs Reviewed Physical Exam: General: nontoxic, no distress, appears at stated age Derm: warm, dry, intact Head: atraumatic, normocephalic, symmetric Eyes: EOMI, no lid lag, anicteric sclera Mouth: no lip lesion, mucus membranes moist Cardiovascular: S1 S2 reg, no murmur, rubs, or gallops Lungs: CTA bilateral, no rhonchi, no rales, no accessory muscle use Abdominal: soft, tender to palpataion, no appreciable organomegaly Extremities: no gross muscle atrophy, no edema, no contractures Neuro: Alert, Oriented, CNII-XII grossly intact, gait normal Psych: well appearing, appropriate affect Data Received Today: Pertinent Labs: WBC 18.35, Hgb 14.6 glucose 113, lipase 906, BUN 6.5, Hct 44 Imaging: No new imaging Assessment/Plan: 48-year-old male with past medical history of chronic alcohol abuse and nicotine abuse presents to with abdominal pain this started 2 days ago complicated with acute onset sharp generalized abdominal pain, admitted for pancreatitis. Acute pancreatitis, likely due to alcohol abuse, improving CT abdomen and pelvis in ER shows findings compatible with acute uncomplicated pancreatitis with no evidence of necrosis. Lemoyne's criteria to determine severity. +1 on admission. Will reevaluate tomorrow. Lipase levels trending down. Will continue to monitor. continue Lactated Ringer's 120 cc/hr Advancing to full liquid diet Antiemetics with Zofran 4 mg IV push every 8 hours as needed Pain management with Dilaudid 1 mg IV push every 3 hours as needed. Acetaminophen 650 mg PO q6hr prn. Wolcott 5-325 PO q6hr prn for moderate pain. LDH 175 Will monitor BUN, CR, HCT. Monitor vitals. GI consulted, note reviewed, continue current management Chronic alcohol abuse [facility] protocol. Monitor for acute alcohol withdrawal. -Monitor for sedation with Ativan mild exacerbation of undiagnosed COPD Continue with DuoNebs [id number] and as needed Continue prednisone 40 mg p.o. daily Continue to monitor oxygen saturation Leukocytosis, likely secondary to acute stressor with no source of active infection at this time WBC 16.3 Continue monitoring CBC Hyperglycemia, stress-induced A1c 5.7 GERD Protonix 40 mg po qd DVT prophylaxis: Lovenox 40 mg subcu daily The patient is admitted with an anticipated greater than 2 midnight stay for evaluation of acute pancreatitis CODE STATUS: Full code Discussed with: Patient Anticipated discharge place: Home F: LR at 120 cc/hr E: Replete as needed N: full liquid diet A: Fall precautions DVT ppx: Lovenox 40 mg SQ Code status: Full Anticipated discharge place: Pending clinical course Anticipated discharge time: Pending clinical course I have seen and evaluated the patient today. Discussed with the resident and agree with the residents finding and plan as documented in the resident's note. Changes highlighted in blue font. Objective - Vital Signs Vital signs: Vital Signs Temp 98.6 F 06/02/24 02:32 Pulse 87 06/02/24 02:32 Resp 16 06/02/24 02:32 BP 131/83 06/02/24 02:32 Pulse Ox 95 06/02/24 02:32 FiO2 Intake & Output 06/01/24 06/02/24 06/02/24 18:59 06:59 18:59 Intake Total 485 Balance 485 Weight 78.018 kg Intake: Oral 485 Other: Voiding Method Toilet # Voids 3 - Labs CBC & Chem 7: 06/02/24 04:30 06/02/24 04:30 Labs: Abnormal Lab Results - Last 24 Hours (Table) 06/01/24 06/01/24 06/01/24 Range/Units 06:50 06:50 09:06 WBC 18.06 H (4.50-10.00) X 10*3/uL RBC 5.71 H (4.40-5.60) X 10*6/uL Hct 51.1 H (39.6-50.0) % Immature Gran # 0.14 H (0.00-0.04) X 10*3/uL Neutrophils # 15.42 H (1.80-7.70) X 10*3/uL Monocytes # 1.25 H (0.20-1.00) X 10*3/uL Eosinophils # 0.02 L (0.04-0.35) X 10*3/uL Chloride 109 H (98-107) mmol/L Glucose 127 H (74-99) mg/dL POC Glucose (mg/dL) 115 H (70-110) mg/dL Total Protein 6.1 L (6.3-8.2) g/dL Lipase 8052 H (23-300) U/L 06/01/24 Range/Units 19:38 WBC (4.50-10.00) X 10*3/uL RBC (4.40-5.60) X 10*6/uL Hct (39.6-50.0) % Immature Gran # (0.00-0.04) X 10*3/uL Neutrophils # (1.80-7.70) X 10*3/uL Monocytes # (0.20-1.00) X 10*3/uL Eosinophils # (0.04-0.35) X 10*3/uL Chloride (98-107) mmol/L Glucose (74-99) mg/dL POC Glucose (mg/dL) 172 H (70-110) mg/dL Total Protein (6.3-8.2) g/dL Lipase (23-300) U/L
[2024-06-03] MEDS: HYDROcodone/APAP 5-325MG 1 EACH TAB PO PRN (00:20)
[2024-06-03 04:40] LABS: Basophils % (A) 0 %; Eosinophils # (A) 0.1 k/uL (0-0.7); Eosinophils % (A) 0 %; HCT 45.1 % (39.0-53.0); HGB 14.1 gm/dL (13.0-17.5); Lymphocytes # (A) 1.4 k/uL (1.0-4.8); Lymphocytes % (A) 11 %; MCH 29.7 pg (25.0-35.0); MCHC 31.2 g/dL (31.0-37.0); MCV 95.2 fL (80.0-100.0); Mean Platelet Volume 9.6; Monocytes % (A) 7 %; Neutrophils # (A) 10.3 k/uL (1.3-7.7); Neutrophils % (A) 80 %; Platelet Count 150 k/uL (150-450); RBC 4.74 m/uL (4.30-5.90); RDW 13.1 % (11.5-15.5); WBC 12.9 k/uL (3.8-10.6)
[2024-06-03 05:01] LABS: ALT 14 U/L (4-49); AST 22 U/L (17-59); African American GFR (CKD) >90 (>60 ml/min/1.73 sqM); Albumin 3.2 g/dL (3.5-5.0); Albumin/Globulin Ratio 1.4; Alkaline Phosphatase 54 U/L (38-126); Anion Gap 4 mmol/L; Blood Urea Nitrogen 8 mg/dL (9-20); Calcium 9.2 mg/dL (8.4-10.2); Carbon Dioxide 27 mmol/L (22-30); Chloride 106 mmol/L (98-107); Globulin 2.3 g/dL; Glucose 104 mg/dL (74-99); Lipase 871 U/L (23-300); Non-African American GFR(CKD) >90 (>60 ml/min/1.73 sqM); Potassium 4.2 mmol/L (3.5-5.1); Sodium 137 mmol/L (137-145); Total Bilirubin 0.6 mg/dL (0.2-1.3); Total Protein 5.5 g/dL (6.3-8.2)
[2024-06-03 09:23] VITALS: BP 139/84; PULSE 73; RESP 16; TEMP 98.3
--- NOTE | 2024-06-03 11:42 | P.DS ---
Providers Date of admission: 06/01/24 07:30 Expected date of discharge: 06/03/24 Attending physician: Nabil Bergman MD Consults: 05/31/24 20:09 Consult Physician Urgent Consulting Provider: Lacey Causey Consult Reason/Comments: acute pancreatitis, etoh abuse Do you want consulting provider notified?: Yes [facility] Course: Discharge Diagnosis: Acute pancreatitis, likely due to alcohol abuse Alcohol dependence Mild exacerbation of undiagnosed COPD GERD Leukocytosis, secondary to acute stressor Hospital Course: Patient is a 48-year-old male with past medical history of chronic alcohol abuse and tobacco abuse who presents to ER with progressively worsening abdominal pain this started 2 days ago. Since 2 days, patient reports that the pain has been constant, nonradiating, 2 out of 10, and epigastric region with 4 episodes of diarrhea. 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 Patient went to take a nap and woke up around 1 PM with sudden onset diffuse abdominal which he reports as constant, 10 out of 10, radiated to the back associated with 2 episodes of nonbloody vomiting. Patient reports no previous episodes of such abdominal pain. Denies previous episodes of pancreatitis. Patient has been drinking a pint of vodka daily for the past 4 years. Patient denies auditory or visual hallucination. Denies tremors, numbness, tingling or weakness in upper and lower extremities, chest pain, heart palpitation, and diaphoresis. Patient also reports progressively worsening mild shortness of breath with productive cough since 1 year. Patient has a significant smoking history of 1 pack/day since 39 years. Patient has been using his girlfriend's albuterol inhaler as needed which mildly alleviates his symptoms. CT abdomen and pelvis in ER shows findings compatible with acute uncomplicated pancreatitis with no evidence of necrosis. Remarkable for hepatic steatosis and colonic diverticulosis.Chest x-ray in the ER shows no acute cardiopulmonary process. Vitals: Tmax 98.9 F, heart rate 84, respiratory rate 18, blood pressure 166/115, oxygen saturation 90% on room air. Laboratory evaluation shows lipase 9696, WBC 16.3, hemoglobin 17.0, hematocrit 53.2, platelet count 198, sodium 139, potassium 4.8, chloride 110, bicarb 20, glucose 131. Patient admitted for further evaluation. Severe pancreatitis unlikely per Satish's criteria on admission. While admitted we placed him on CIWA protocol due to his chronic alcohol abuse. He was given lactated Ringer's, and was placed on a clear liquid diet. He was also given oral steroid for suspected undiagnosed mild COPD exacerbation. He is on appropriate pain management during his stay. Lipase level started to trend down. After 48 hours per Satish's criteria he was predicted 1% predicted mortality. We were able to advance his diet to solids and was able to tolerate. Was discharged with folic acid, thiamine, sennosides. Left with oral prednisone to finish off his course. Educated him on alcohol abuse, and were told that he wants to quit. Is to follow-up with his PCP. He is to be discharged home. 06/03/2024: Patient seen and examined at bedside. No complaints of pain 0 out of 10. Has been tolerated full liquid diet and wants to advance to solid foods. Vital signs reviewed and stable. Physical Exam: General: nontoxic, no distress, appears at stated age Derm: warm, dry, intact Head: atraumatic, normocephalic, symmetric Eyes: EOMI, no lid lag, anicteric sclera Mouth: no lip lesion, mucus membranes moist Cardiovascular: S1 S2 reg, no murmur, rubs, or gallops Lungs: CTA bilateral, no rhonchi, no rales, no accessory muscle use Abdominal: soft, non-tender to palpataion, no appreciable organomegaly Extremities: no gross muscle atrophy, no edema, no contractures Neuro: Alert, Oriented, CNII-XII grossly intact, gait normal Psych: well appearing, appropriate affect A total of 33 minutes of time were spent preparing this complex discharge s steffany. Patient was discharge on June 03, 2024 at 8:39 AM I have seen and evaluated the patient today. Discussed with the resident and agree with the residents finding and plan as documented in the resident's note. Changes highlighted in blue font. Patient Condition at Discharge: Stable Plan - Discharge Summary Discharge Rx Participant: No New Discharge Prescriptions: New predniSONE [Deltasone] 40 mg PO DAILY #6 tab Folic Acid 1 mg PO DAILY #90 tab Thiamine [Vitamin B-1] 100 mg PO DAILY #90 tab Sennosides/Docusate Sodium [Senna Plus 8.6-50 mg Tablet] 1 each PO DAILY #30 tab Continue Fexofenadine HCl [Kathryn Allergy] 180 mg PO HS Potassium Citrate 99 mg PO HS Omeprazole 20 mg PO HS Magnesium Citrate(Unknown Dose) 1 tab PO HS Ascorbic Acid [Vitamin C] 1,000 mg PO HS Albuterol Sulfate [Albuterol Sulfate Hfa] 1 puff INHALATION BID PRN PRN Reason: Shortness Of Breath Discontinued Omeprazole 20 mg PO HS Discharge Medication List Albuterol Sulfate [Albuterol Sulfate Hfa] 1 puff INHALATION BID PRN 05/31/24 [History] Ascorbic Acid [Vitamin C] 1,000 mg PO HS 05/31/24 [History] Fexofenadine HCl [Kathryn Allergy] 180 mg PO HS 05/31/24 [History] Magnesium Citrate(Unknown Dose) 1 tab PO HS 05/31/24 [History] Omeprazole 20 mg PO HS 05/31/24 [History] Potassium Citrate 99 mg PO HS 05/31/24 [History] Folic Acid 1 mg PO DAILY #90 tab 06/03/24 [Rx] Sennosides/Docusate Sodium [Senna Plus 8.6-50 mg Tablet] 1 each PO DAILY #30 tab 06/03/24 [Rx] Thiamine [Vitamin B-1] 100 mg PO DAILY #90 tab 06/03/24 [Rx] predniSONE [Deltasone] 40 mg PO DAILY #6 tab 06/03/24 [Rx] Follow up Appointment(s)/Referral(s): Johanna Limon MD [REFERRING] - 1 Week Patient Instructions/Handouts: How to Stop Smoking (DC), Pancreatitis (DC), Alcohol Use Disorder (DC) Activity/Diet/Wound Care/Special Instructions: Please see a PCP, if you do not have one, then please call Dr. Limon's office to make an appointment. Discharge/Stand Alone Forms: Who Do I Call?, Community Resources Discharge Disposition: HOME SELF-CARE
== END 2024-06-03 11:37 | disposition home or self-care (01) | DRG 439 ==
LOC: EC 16:40 → 6NMEDSUR 20:17 → OBSVTOIN 06-01 07:30 → 6NMEDSUR 06-01 14:11
PROVIDERS: ADMIT Internal Medicine; ATTEND Internal Medicine
DX: K85.20 Alcohol induced acute pancreatitis without necrosis or infection (principal); J44.1 Chronic obstructive pulmonary disease with (acute) exacerbation; K76.0 Fatty (change of) liver, not elsewhere classified; K57.30 Diverticulosis of large intestine without perforation or abscess without bleeding; K21.9 Gastro-esophageal reflux disease without esophagitis; F17.210 Nicotine dependence, cigarettes, uncomplicated; F10.20 Alcohol dependence, uncomplicated; R73.9 Hyperglycemia, unspecified; D72.829 Elevated white blood cell count, unspecified; K08.89 Other specified disorders of teeth and supporting structures; Z28.310 Unvaccinated for COVID-19; Z28.21 Immunization not carried out because of patient refusal; Z88.1 Allergy status to other antibiotic agents; Z79.899 Other long term (current) drug therapy
CPT/HCPCS: 36415; 71045; 74177; 80053; 80320; 81003; 83036; 83605; 83615; 83690; 85025; 94640; 96361; 96372; 96374; 96375; 96376; 99285

== ENCOUNTER 2024-07-11 05:41 | Inpatient (IN) | payer BC ==
[2024-07-11] MEDS ORDERED: LORazepam 1 MG TAB PO PRN ×3 (05:49)
[2024-07-11] MEDS ORDERED: LORazepam 2 MG/ML INJ IV PRN ×3 (05:49)
[2024-07-11] MEDS ORDERED: LORazepam 0.5 MG TAB PO PRN (05:49)
--- NOTE | 2024-07-11 05:52 | ED ---
Abdominal Pain HPI - General Chief Complaint: Abdominal Pain Stated Complaint: Abd Pain Time Seen by Provider: 07/11/24 05:50 Source: patient, EMS, RN notes reviewed, old records reviewed Mode of arrival: EMS Limitations: no limitations - History of Present Illness Initial Comments: This is a 48-year-old male with EMS for history of pancreatitis alcohol abuse coming in for severe abdominal pain suprapubic and epigastric abdominal pain more periumbilical to suprapubic pain and epigastric currently. Positive nausea no vomiting MD Complaint: abdominal pain -: days(s) Location: suprapubic Radiation: epigastric, suprapubic Migration to: suprapubic Severity: moderate Severity scale (1-10): 7 Quality: sharp Consistency: constant Improves With: nothing, vomiting Worsens With: vomiting Associated Symptoms: nausea, vomiting Treatments Prior to Arrival: other - Related Data Home Medications Medication Instructions Recorded Confirmed Albuterol Sulfate [Albuterol 1 puff INHALATION RT-QID PRN 05/31/24 07/11/24 Sulfate Hfa] Ascorbic Acid [Vitamin C] 1,000 mg PO DAILY 05/31/24 07/11/24 Fexofenadine HCl [Kathryn Allergy] 180 mg PO DAILY 05/31/24 07/11/24 Omeprazole 20 mg PO DAILY 05/31/24 07/11/24 Potassium Citrate 99 mg PO DAILY 05/31/24 07/11/24 Magnesium Citrate 200 mg PO DAILY 07/11/24 07/11/24 Multivit-Mins/Iron/Folic/Lycop 1 tab PO DAILY 07/11/24 07/11/24 [Centrum Men's Tablet] Previous Rx's Medication Instructions Recorded Folic Acid 1 mg PO DAILY #90 tab 06/03/24 Thiamine [Vitamin B-1] 100 mg PO DAILY #90 tab 06/03/24 Ibuprofen [Motrin] 600 mg PO Q8HR PRN #12 tab 07/13/24 Ondansetron [Zofran] 4 mg PO Q8HR PRN #12 tab 07/13/24 traMADol HCl [Ultram] 50 mg PO Q6HR PRN 3 Days #12 tab 07/13/24 Allergies Allergy/AdvReac Type Severity Reaction Status Date / Time bee venom protein (honey bee) Allergy Anaphylaxis Verified 07/11/24 07:53 diphenhydramine Allergy Anaphylaxis Verified 07/11/24 07:53 [From Benadryl] doxycycline Allergy Anaphylaxis Verified 07/11/24 07:53 tetracycline Allergy Anaphylaxis Verified 07/11/24 07:53 Review of Systems ROS Statement: Those systems with pertinent positive or pertinent negative responses have been documented in the HPI. ROS Other: All systems not noted in ROS Statement are negative. Past Medical History Past Medical History: No Reported History Additional Past Medical History / Comment(s): pt states arrythmia - thought possibly a-fib - states no meds ., Herniated cervical disc with occasional numness in arms. , pilon fx left tibia/ankle with surgery 06/18/19 with external fixator., pt using walker. History of Any Multi-Drug Resistant Organisms: None Reported Past Surgical History: Orthopedic Surgery Additional Past Surgical History / Comment(s): lasik eye surgery, tubes in ears. ,sinus and deviated septum surgery at 16 years old., Surgery for pilon fx left ankle (06/18/19) Past Anesthesia/Blood Transfusion Reactions: Previous Problems w/ Anesthesia Additional Past Anesthesia/Blood Transfusion Reaction / Comment(s): post op surgery 06/18/19-states pain all over afterwards, states right side of tongue was "smashed"- thought he might have had a seizure., states 2 lower teeth are loose since surgery. Past Psychological History: No Psychological Hx Reported Smoking Status: Current every day smoker Past Alcohol Use History: Daily, Occasional Past Drug Use History: Marijuana - Past Family History Father Family Medical History: Cancer Mother Family Medical History: No Reported History General Exam General appearance: alert, in no apparent distress Head exam: Present: atraumatic, normocephalic, normal inspection Eye exam: Present: normal appearance, PERRL, EOMI. Absent: scleral icterus, conjunctival injection, periorbital swelling ENT exam: Present: normal exam, mucous membranes moist Neck exam: Present: normal inspection. Absent: tenderness, meningismus, lymphadenopathy Respiratory exam: Present: normal lung sounds bilaterally. Absent: respiratory distress, wheezes, rales, rhonchi, stridor Cardiovascular Exam: Present: regular rate, normal rhythm, normal heart sounds. Absent: systolic murmur, diastolic murmur, rubs, gallop, clicks GI/Abdominal exam: Present: soft, normal bowel sounds. Absent: distended, tenderness, guarding, rebound, rigid Extremities exam: Present: normal inspection, full ROM, normal capillary refill. Absent: tenderness, pedal edema, joint swelling, calf tenderness Back exam: Present: normal inspection Neurological exam: Present: alert, oriented X3, CN II-XII intact Psychiatric exam: Present: normal affect, normal mood Skin exam: Present: warm, dry, intact, normal color. Absent: rash Course Vital Signs 07/11/24 07/11/24 07/11/24 05:44 08:28 15:47 Temperature 98.0 F Pulse Rate 81 80 97 Respiratory 18 18 18 Rate Blood Pressure 155/107 160/113 161/97 O2 Sat by Pulse 99 97 97 Oximetry 07/11/24 07/11/24 07/11/24 18:35 19:34 20:05 Temperature Pulse Rate 72 98 92 Respiratory 18 17 20 Rate Blood Pressure 150/89 158/100 135/101 O2 Sat by Pulse 94 L 97 96 Oximetry 07/11/24 20:35 Temperature Pulse Rate 71 Respiratory 15 Rate Blood Pressure 134/84 O2 Sat by Pulse 96 Oximetry - Reevaluation(s) Reevaluation #1: 07/11/24 05:51 Medical records reviewed Reevaluation #2: Patient symptoms improving here in the ER Reevaluation #3: Patient informed of results and questions answered Reevaluation #4: Was pt. sent in by a medical professional or institution (YIFAN Wilson, PRESS READER, urgent care, hospital, or [facility]...) When possible be specific @ -no Did you speak to anyone other than the patient for history (EMS, parent, family, police, friend...)? What history was obtained from this source @ -no Did you review nursing and triage notes (agree or disagree)? Why? @ -agree Are old charts reviewed (outside hosp., previous admission, EMS record, old EKG, old radiological studies, urgent care reports/EKG's, [facility] records)? Re port findings @ -yes Differential Diagnosis (chest pain, altered mental status, abdominal pain women, abdominal pain men, vaginal bleeding, weakness, fever, dyspnea, syncope, headache, dizziness, GI bleed, back pain, seizure, CVA, palpatations, mental health, musculoskeletal)? @ -prior EKG interpreted by me (3pts min.). @ -no X-rays interpreted by me (1pt min.). @ -no CT interpreted by me (1pt min.). @ -no U/S interpreted by me (1pt. min.). @ -no What testing was considered but not performed or refused? (CT, X-rays, U/S, labs)? Why? @ -none What meds were considered but not given or refused? Why? @ -none Did you discuss the management of the patient with other professionals (yojana etienne i.eSebastián Wilson, PA, PRESS READER, lab, RT, psych nurse, aids social worker, reading aide, teacher, facilities officer, pillowcase folder)? Give summary @ -no Was smoking cessation discussed for >3mins.? @ -no Was critical care preformed (if so, how long)? @ -no Were there social determinants of health that impacted care today? How? (Homelessness, low income, unemployed, alcoholism, drug addiction, transportation, low edu. Level, literacy, decrease access to med. care, penitentiary, rehab)? @ -none Was there de-escalation of care discussed even if they declined (Discuss DNR or withdrawal of care, Hospice)? DNR status @ -no What co-morbidities impacted this encounter? (DM, HTN, Smoking, COPD, CAD, Cancer, CVA, ARF, Chemo, Hep., AIDS, mental health diagnosis, sleep apnea, morbid obesity)? @ -none Was patient admitted / discharged? Hospital course, mention meds given and route, prescriptions, significant lab abnormalities, going to OR and other pertinent info. @ - 48 Male severe abdominal pain positive pancreatitis. Patient admitted for n.p.o. with pain control, monitoring for alcohol withdrawal Admitted Undiagnosed new problem with uncertain prognosis? @ -no Drug Therapy requiring intensive monitoring for toxicity (Heparin, Nitro, Insulin, Cardizem)? @ -no Were any procedures done? @ -no Diagnosis/symptom? @ -Alcohol intoxication and withdrawal Acute, or Chronic, or Acute on Chronic? @ -Acute Uncomplicated (without systemic symptoms) or Complicated (systemic symptoms)? @ -Complicated Side effects of treatment? @ -no Exacerbation, Progression, or Severe Exacerbation? @ -exacerbation Poses a threat to life or bodily function? How? (Chest pain, USA, AR, pneumonia, PE, COPD, DKA, ARF, appy, cholecystitis, CVA, Diverticulitis, Homicidal, Suicidal, threat to staff... and all critical care pts) @ -yes Reevaluation #5: Differential Abdominal Pain Men: Appendicitis, cholecystitis, diverticulosis, ischemic bowel, pancreatitis, hepatitis, UTI, gastroenteritis, AAA, incarcerated hernia, bowel obstruction, constipation, inflammatory bowel, hepatitis, peptic ulcer disease, splenic infarction, perforated viscus, testicular torsion, this is not meant to be an all-inclusive list Medical Decision Making - Medical Decision Making 48 Male severe abdominal pain positive pancreatitis. Patient admitted for n.p.o. with pain control, monitoring for alcohol withdrawal - Lab Data Result diagrams: 07/13/24 10:45 07/13/24 10:45 Lab Results 07/11/24 07/11/24 07/11/24 Range/Units 05:52 05:52 05:52 WBC 17.2 H (3.8-10.6) k/uL RBC 5.71 (4.30-5.90) m/uL Hgb 16.6 (13.0-17.5) gm/dL Hct 51.3 (39.0-53.0) % MCV 89.8 D (80.0-100.0) fL MCH 29.1 (25.0-35.0) pg MCHC 32.4 (31.0-37.0) g/dL RDW 12.6 (11.5-15.5) % Plt Count 152 (150-450) k/uL MPV 8.3 Neutrophils % 86 % Lymphocytes % 8 % Monocytes % 5 % Eosinophils % 1 % Basophils % 0 % Neutrophils # 14.7 H (1.3-7.7) k/uL Lymphocytes # 1.3 (1.0-4.8) k/uL Monocytes # 0.8 (0-1.0) k/uL Eosinophils # 0.2 (0-0.7) k/uL Basophils # 0.1 (0-0.2) k/uL PT 10.6 (10.0-12.5) sec INR 1.0 (<1.2) APTT 23.1 (22.0-30.0) sec Sodium 136 L (137-145) mmol/L Potassium 4.5 (3.5-5.1) mmol/L Chloride 105 (98-107) mmol/L Carbon Dioxide 25 (22-30) mmol/L Anion Gap 6 mmol/L BUN 13 (9-20) mg/dL Creatinine 0.86 (0.66-1.25) mg/dL Est GFR (CKD-EPI)AfAm >90 (>60 ml/min/1.73 sqM) Est GFR (CKD-EPI)NonAf >90 (>60 ml/min/1.73 sqM) Glucose 142 H (74-99) mg/dL Plasma Lactic Acid Solomon (0.7-2.0) mmol/L Calcium 9.4 (8.4-10.2) mg/dL Phosphorus 2.8 (2.5-4.5) mg/dL Magnesium 1.8 (1.6-2.3) mg/dL Total Bilirubin 1.1 (0.2-1.3) mg/dL AST 28 (17-59) U/L ALT 29 (4-49) U/L Alkaline Phosphatase 95 (38-126) U/L Troponin I (0.000-0.034) ng/mL Total Protein 6.8 (6.3-8.2) g/dL Albumin 4.3 (3.5-5.0) g/dL Amylase 583 H* (30-110) U/L Lipase 5704 H (23-300) U/L Serum Alcohol <10 mg/dL 07/11/24 07/11/24 Range/Units 05:52 05:52 WBC (3.8-10.6) k/uL RBC (4.30-5.90) m/uL Hgb (13.0-17.5) gm/dL Hct (39.0-53.0) % MCV (80.0-100.0) fL MCH (25.0-35.0) pg MCHC (31.0-37.0) g/dL RDW (11.5-15.5) % Plt Count (150-450) k/uL MPV Neutrophils % % Lymphocytes % % Monocytes % % Eosinophils % % Basophils % % Neutrophils # (1.3-7.7) k/uL Lymphocytes # (1.0-4.8) k/uL Monocytes # (0-1.0) k/uL Eosinophils # (0-0.7) k/uL Basophils # (0-0.2) k/uL PT (10.0-12.5) sec INR (<1.2) APTT (22.0-30.0) sec Sodium (137-145) mmol/L Potassium (3.5-5.1) mmol/L Chloride (98-107) mmol/L Carbon Dioxide (22-30) mmol/L Anion Gap mmol/L BUN (9-20) mg/dL Creatinine (0.66-1.25) mg/dL Est GFR (CKD-EPI)AfAm (>60 ml/min/1.73 sqM) Est GFR (CKD-EPI)NonAf (>60 ml/min/1.73 sqM) Glucose (74-99) mg/dL Plasma Lactic Acid Solomon 1.6 (0.7-2.0) mmol/L Calcium (8.4-10.2) mg/dL Phosphorus (2.5-4.5) mg/dL Magnesium (1.6-2.3) mg/dL Total Bilirubin (0.2-1.3) mg/dL AST (17-59) U/L ALT (4-49) U/L Alkaline Phosphatase (38-126) U/L Troponin I <0.012 (0.000-0.034) ng/mL Total Protein (6.3-8.2) g/dL Albumin (3.5-5.0) g/dL Amylase (30-110) U/L Lipase (23-300) U/L Serum Alcohol mg/dL Disposition Clinical Impression: Alcohol abuse, Pancreatitis, Acute alcoholic pancreatitis Disposition: ADMITTED IP TO THIS [facility] Condition: Fair Is patient prescribed a controlled substance at d/c from ED?: No
[2024-07-11] MEDS: SODIUM CHLORIDE 0.9% 1,000 ML IV STA (06:00)
[2024-07-11] MEDS: ONDANSETRON 4 MG/2 ML VIAL IVP STA (06:01)
[2024-07-11] MEDS: MORPHINE SULFATE 4 MG/ML SYRINGE IVP STA (06:04)
[2024-07-11] MEDS: PANTOPRAZOLE 40 MG/10 ML VIAL IVP STA (06:04)
[2024-07-11] MEDS: SODIUM CHLORIDE 0.9% 500 ML 500 ML IV STA (06:07)
[2024-07-11 06:10] LABS: Basophils # (A) 0.1 k/uL (0-0.2); Basophils % (A) 0 %; Eosinophils # (A) 0.2 k/uL (0-0.7); Eosinophils % (A) 1 %; HCT 51.3 % (39.0-53.0); HGB 16.6 gm/dL (13.0-17.5); Lymphocytes # (A) 1.3 k/uL (1.0-4.8); Lymphocytes % (A) 8 %; MCH 29.1 pg (25.0-35.0); MCHC 32.4 g/dL (31.0-37.0); Mean Platelet Volume 8.3; Monocytes # (A) 0.8 k/uL (0-1.0); Monocytes % (A) 5 %; Neutrophils # (A) 14.7 k/uL (1.3-7.7); Neutrophils % (A) 86 %; Platelet Count 152 k/uL (150-450); RBC 5.71 m/uL (4.30-5.90); RDW 12.6 % (11.5-15.5); WBC 17.2 k/uL (3.8-10.6)
[2024-07-11] MEDS: HYDROmorphone 1 MG/ML 1 ML SYRINGE IVP STA (06:15)
[2024-07-11 06:23] LABS: MCV 89.8 fL (80.0-100.0)
[2024-07-11 06:25] LABS: ALT 29 U/L (4-49); AST 28 U/L (17-59); African American GFR (CKD) >90 (>60 ml/min/1.73 sqM); Albumin 4.3 g/dL (3.5-5.0); Alcohol <10 mg/dL; Alkaline Phosphatase 95 U/L (38-126); Anion Gap 6 mmol/L; Blood Urea Nitrogen 13 mg/dL (9-20); Calcium 9.4 mg/dL (8.4-10.2); Carbon Dioxide 25 mmol/L (22-30); Chloride 105 mmol/L (98-107); Glucose 142 mg/dL (74-99); Magnesium 1.8 mg/dL (1.6-2.3); Non-African American GFR(CKD) >90 (>60 ml/min/1.73 sqM); Phosphorus 2.8 mg/dL (2.5-4.5); Potassium 4.5 mmol/L (3.5-5.1); Sodium 136 mmol/L (137-145); Total Bilirubin 1.1 mg/dL (0.2-1.3); Total Protein 6.8 g/dL (6.3-8.2)
[2024-07-11 06:50] LABS: Partial Thromboplastin Time 23.1 sec (22.0-30.0); Prothrombin Time 10.6 sec (10.0-12.5)
[2024-07-11 06:55] LABS: Lipase 5704 U/L (23-300)
[2024-07-11] MEDS ORDERED: NALOXONE 0.4 MG/ML 1 ML VIAL IV PRN (07:11)
[2024-07-11 07:23] LABS: Amylase 583 U/L (30-110)
[2024-07-11] MEDS: HYDROmorphone 1 MG/ML 1 ML SYRINGE IVP PRN (10:17)
[2024-07-11] MEDS: SODIUM CHLORIDE 0.9% 1,000 ML IV SCH (10:58)
[2024-07-11] MEDS: ONDANSETRON 4 MG/2 ML VIAL IVP PRN (13:26)
[2024-07-11 13:54] LABS: Appearance,Urine Clear (Clear); Bilirubin,Urine Negative (Negative); Blood,Urine Negative (Negative); Color,Urine Yellow; Glucose,Urine (UA) Trace (Negative); Ketones,Urine 2+ (Negative); Leukocyte Esterase,Urine Negative (Negative); Nitrite,Urine Negative (Negative); PH, Urine 6.5 (5.0-8.0); Protein,Urine Trace (Negative); Specific Gravity,Urine 1.023 (1.001-1.035); Urobilinogen,Urine <2.0 mg/dL (<2.0)
[2024-07-11] MEDS ORDERED: ACETAMINOPHEN TAB 325 MG TAB PO PRN (14:52)
--- NOTE | 2024-07-11 14:53 | P.HPIM ---
History of Present Illness H&P Date: 07/11/24 This is a pleasant 48-year-old male with medical history of a cardiac arrhythmia as well as pancreatitis and chronic alcoholism. Patient was recently mated to the hospital for pancreatitis about 1 month ago was also diagnosed during that hospital stay for early stages of COPD. Patient was advised to quit alcohol states that he went home and did not drink for a week and a half and then he began to drink again states that he drinks about 1 pint per day he comes back in with abdominal pain epigastric with radiation around to the back as well as decreased appetite and nausea. Blood work reveals and amylase level of 583 lipase level 5704 white count of 17.2 consistent with acute alcoholic pancr eatitis. Patient will be hydrated and made n.p.o. as well as pain medication. He is offered a nicotine patch but declines at this time. REVIEW OF SYSTEMS: CONSTITUTIONAL: No fever, no malaise, no fatigue. HEENT: No recent visual problems or hearing problems. Denied any sore throat. CARDIOVASCULAR: No chest pain, orthopnea, PND, no palpitations, no syncope. PULMONARY: No shortness of breath, no cough, no hemoptysis. GASTROINTESTINAL: No diarrhea, no nausea, no vomiting, no abdominal pain. NEUROLOGICAL: No headaches, no weakness, no numbness. HEMATOLOGICAL: Denies any bleeding or petechiae. GENITOURINARY: Denies any burning micturition, frequency, or urgency. MUSCULOSKELETAL/RHEUMATOLOGICAL: Denies any joint pain, swelling, or any muscle pain. ENDOCRINE: Denies any polyuria or polydipsia. The rest of the 14-point review of systems is negative. PHYSICAL EXAMINATION: GENERAL: The patient is alert and oriented x3, not in any acute distress. Well developed, well nourished. HEENT: Pupils are round and equally reacting to light. EOMI. No scleral icterus. No conjunctival pallor. Normocephalic, atraumatic. No pharyngeal erythema. No thyromegaly. CARDIOVASCULAR: S1 and S2 present. No murmurs, rubs, or gallops. PULMONARY: Chest is clear to auscultation, no wheezing or crackles. ABDOMEN: Soft, nontender, nondistended, normoactive bowel sounds. No palpable organomegaly. MUSCULOSKELETAL: No joint swelling or deformity. EXTREMITIES: No cyanosis, clubbing, or pedal edema. NEUROLOGICAL: Gross neurological examination did not reveal any focal deficits. SKIN: No rashes. Assessment Acute pancreatitis with elevated amylase and lipase History reported cardiac arrhythmia patient is unable to provide any further details about this Chronic nicotine use Chronic alcoholism COPD with no acute exacerbation GI prophylaxis Full code Plan Patient is admitted to the hospital and we monitored for pancreatitis patient will be made n.p.o. will continue normal saline running at 100 mL/h. IV Toradol and Tylenol for pain. Continue Ativan CIWA protocol Continue thiamine supplementation Albuterol inhaler as needed Repeat blood work The impression and plan of care has been dictated by Agnes Pierre, Nurse Practitioner as directed. Dr. Brittny MD I have performed a history and physical examination and medical decision making of this patient, discussed the same with the dictator, and agree with the dictators assessment and plan as written, documented as a scribe. Based on total visit time, I have performed more than 50% of this visit. Past Medical History Past Medical History: No Reported History Additional Past Medical History / Comment(s): pt states arrythmia - thought possibly a-fib - states no meds ., Herniated cervical disc with occasional numness in arms. , pilon fx left tibia/ankle with surgery 06/18/19 with external fixator., pt using walker. History of Any Multi-Drug Resistant Organisms: None Reported Past Surgical History: Orthopedic Surgery Additional Past Surgical History / Comment(s): lasik eye surgery, tubes in ears. ,sinus and deviated septum surgery at 16 years old., Surgery for pilon fx left ankle (06/18/19) Past Anesthesia/Blood Transfusion Reactions: Previous Problems w/ Anesthesia Additional Past Anesthesia/Blood Transfusion Reaction / Comment(s): post op surgery 06/18/19-states pain all over afterwards, states right side of tongue was "smashed"- thought he might have had a seizure., states 2 lower teeth are loose since surgery. Past Psychological History: No Psychological Hx Reported Smoking Status: Current every day smoker Past Alcohol Use History: Daily, Occasional Past Drug Use History: Marijuana - Past Family History Father Family Medical History: Cancer Mother Family Medical History: No Reported History Medications and Allergies Home Medications Medication Instructions Recorded Confirmed Type Albuterol Sulfate [Albuterol 1 puff INHALATION RT-QID PRN 05/31/24 07/11/24 History Sulfate Hfa] Ascorbic Acid [Vitamin C] 1,000 mg PO DAILY 05/31/24 07/11/24 History Fexofenadine HCl [Kathryn Allergy] 180 mg PO DAILY 05/31/24 07/11/24 History Omeprazole 20 mg PO DAILY 05/31/24 07/11/24 History Potassium Citrate 99 mg PO DAILY 05/31/24 07/11/24 History Folic Acid 1 mg PO DAILY #90 tab 06/03/24 07/11/24 Rx Thiamine [Vitamin B-1] 100 mg PO DAILY #90 tab 06/03/24 07/11/24 Rx Magnesium Citrate 200 mg PO DAILY 07/11/24 07/11/24 History Multivit-Mins/Iron/Folic/Lycop 1 tab PO DAILY 07/11/24 07/11/24 History [Centrum Men's Tablet] Allergies Allergy/AdvReac Type Severity Reaction Status Date / Time bee venom protein (honey bee) Allergy Anaphylaxis Verified 07/11/24 07:53 diphenhydramine Allergy Anaphylaxis Verified 07/11/24 07:53 [From Benadryl] doxycycline Allergy Anaphylaxis Verified 07/11/24 07:53 tetracycline Allergy Anaphylaxis Verified 07/11/24 07:53 Physical Exam Vitals: Vital Signs Temp Pulse Resp BP Pulse Ox 07/11/24 08:28 80 18 160/113 97 07/11/24 05:44 98.0 F 81 18 155/107 99 Intake and Output 07/10/24 07/11/24 07/11/24 22:59 06:59 14:59 Other: Weight 79.379 kg Results CBC & Chem 7: 07/11/24 05:52 07/11/24 05:52 Labs: Abnormal Lab Results - Last 24 Hours (Table) 07/11/24 07/11/24 Range/Units 05:52 05:52 WBC 17.2 H (3.8-10.6) k/uL Neutrophils # 14.7 H (1.3-7.7) k/uL Sodium 136 L (137-145) mmol/L Glucose 142 H (74-99) mg/dL Amylase 583 H* (30-110) U/L Lipase 5704 H (23-300) U/L Assessment and Plan Time with Patient: Less than 30
[2024-07-11] MEDS ORDERED: HYDROcodone/APAP 5-325MG 1 EACH TAB PO PRN (15:31)
[2024-07-11] MEDS: KETOROLAC 15 MG/ML 1 ML VIAL IVP PRN (17:57)
[2024-07-11] MEDS: ALBUTEROL HFA INHALER INHALATION PRN (20:09)
[2024-07-12] MEDS: PANTOPRAZOLE 40 MG/10 ML VIAL IV SCH (08:13)
[2024-07-12] MEDS: THIAMINE 100 MG TAB PO SCH (08:13)
[2024-07-12 09:27] LABS: ALT 16 U/L (10-49); AST 16 U/L (14-35); Albumin 3.5 g/dL (3.8-4.9); Albumin/Globulin Ratio 1.75 Ratio (1.60-3.17); Alkaline Phosphatase 73 U/L (41-126); Blood Urea Nitrogen 7.2 mg/dL (9.0-27.0); Calcium 8.5 mg/dL (8.7-10.3); Carbon Dioxide 21.6 mmol/L (21.6-31.8); Chloride 105 mmol/L (96-109); Glucose 101 mg/dL (70-110); Magnesium 1.8 mg/dL (1.5-2.4); Phosphorus 2.7 mg/dL (2.4-5.1); Potassium 4.1 mmol/L (3.5-5.5); Sodium 137 mmol/L (135-145); Total Bilirubin 0.5 mg/dL (0.3-1.2); Total Protein 5.5 g/dL (6.2-8.2)
[2024-07-12 09:36] LABS: Basophils # (A) 0.05 X 10*3/uL (0.00-0.10); Basophils % (A) 0.3 %; Eosinophils # (A) 0.18 X 10*3/uL (0.04-0.35); Eosinophils % (A) 1.1 %; HCT 46.6 % (39.6-50.0); HGB 15.5 g/dL (13.0-17.0); Lymphocytes # (A) 1.98 X 10*3/uL (0.90-5.00); Lymphocytes % (A) 11.9 %; MCH 29.4 pg (27.0-32.0); MCHC 33.3 g/dL (32.0-37.0); MCV 88.4 FL (80.0-97.0); Monocytes # (A) 1.27 X 10*3/uL (0.20-1.00); Monocytes % (A) 7.6 %; NRBC Per 100 WBC 0 X 10*3/uL (0.00-0.01); Neutrophils # (A) 13.05 X 10*3/uL (1.80-7.70); Neutrophils % (A) 78.4 %; Platelet Count 131 X 10*3/uL (140-440); RBC 5.27 X 10*6/uL (4.40-5.60); WBC 16.64 X 10*3/uL (4.50-10.00)
[2024-07-12 09:38] LABS: Lipase 486 U/L (14-60)
[2024-07-12] MEDS ORDERED: HYDROmorphone 1 MG/ML 1 ML SYRINGE IM PRN (15:11)
--- NOTE | 2024-07-12 15:11 | P.PN ---
Subjective Progress Note Date: 07/12/24 This is a pleasant 48-year-old male with medical history of a cardiac arrhythmia as well as pancreatitis and chronic alcoholism. Patient was recently mated to the hospital for pancreatitis about 1 month ago was also diagnosed during that hospital stay for early stages of COPD. Patient was advised to quit alcohol states that he went home and did not drink for a week and a half and then he began to drink again states that he drinks about 1 pint per day he comes back in with abdominal pain epigastric with radiation around to the back as well as decreased appetite and nausea. Blood work reveals and amylase level of 583 lipase level 5704 white count of 17.2 consistent with acute alcoholic pancreatitis. Patient will be hydrated and made n.p.o. as well as pain medication. He is offered a nicotine patch but declines at this time. 07/12/2024 Patient evaluated in follow-up he is reporting severe abdominal discomfort although was resting and sleeping comfortably in the bed. Once awoken he starts groaning in pain and grabbing his belly and stating that he needs IV pain medication. His lipase is down to 400. He can start clear liquid diet we will see how he feels tomorrow. WBC 16.64, sodium 137, magnesium 1.8. REVIEW OF SYSTEMS: CONSTITUTIONAL: No fever, no malaise, no fatigue. HEENT: No recent visual problems or hearing problems. Denied any sore throat. CARDIOVASCULAR: No chest pain, orthopnea, PND, no palpitations, no syncope. PULMONARY: No shortness of breath, no cough, no hemoptysis. GASTROINTESTINAL: No diarrhea, no nausea, no vomiting, no abdominal pain. NEUROLOGICAL: No headaches, no weakness, no numbness. PHYSICAL EXAMINATION: GENERAL: The patient is alert and oriented x3, not in any acute distress. Well developed, well nourished. HEENT: Pupils are round and equally reacting to light. EOMI. No scleral icterus. No conjunctival pallor. Normocephalic, atraumatic. No pharyngeal erythema. No thyromegaly. CARDIOVASCULAR: S1 and S2 present. No murmurs, rubs, or gallops. PULMONARY: Chest is clear to auscultation, no wheezing or crackles. ABDOMEN: Soft, nontender, nondistended, normoactive bowel sounds. No palpable organomegaly. MUSCULOSKELETAL: No joint swelling or deformity. EXTREMITIES: No cyanosis, clubbing, or pedal edema. NEUROLOGICAL: Gross neurological examination did not reveal any focal deficits. SKIN: No rashes. Assessment Acute pancreatitis with elevated amylase and lipase History reported cardiac arrhythmia patient is unable to provide any further details about this Chronic nicotine use Chronic alcoholism COPD with no acute exacerbation GI prophylaxis Full code Plan Patient is admitted to the hospital and we monitored for pancreatitis patient will be continue normal saline running at 100 mL/h. Start clear liquid diet and advance as tolerated repeat blood work in the morning IV Toradol and Tylenol for pain. Continue Ativan CIWA protocol Continue thiamine supplementation Albuterol inhaler as needed The impression and plan of care has been dictated by Agnes Pierre, Nurse Practitioner as directed. Dr. Brittny MD I have performed a history and physical examination and medical decision making of this patient, discussed the same with the dictator, and agree with the dictators assessment and plan as written, documented as a scribe. Based on total visit time, I have performed more than 50% of this visit. Objective - Vital Signs Vital signs: Vital Signs Temp 99.0 F 07/12/24 11:37 Pulse 86 07/12/24 11:37 Resp 18 07/12/24 11:37 BP 133/82 07/12/24 11:37 Pulse Ox 93 L 07/12/24 11:37 FiO2 Intake & Output 07/11/24 07/12/24 07/12/24 18:59 06:59 18:59 Weight 79.379 kg Other: Voiding Method Toilet # Voids 2 - Labs CBC & Chem 7: 07/12/24 04:19 07/12/24 04:19 Labs: Abnormal Lab Results - Last 24 Hours (Table) 07/12/24 07/12/24 Range/Units 04:19 04:19 WBC 16.64 H (4.50-10.00) X 10*3/uL Plt Count 131 L (140-440) X 10*3/uL Immature Gran # 0.11 H (0.00-0.04) X 10*3/uL Neutrophils # 13.05 H (1.80-7.70) X 10*3/uL Monocytes # 1.27 H (0.20-1.00) X 10*3/uL BUN 7.2 L (9.0-27.0) mg/dL BUN/Creatinine Ratio 9.00 L (12.00-20.00) Ratio Calcium 8.5 L (8.7-10.3) mg/dL Total Protein 5.5 L (6.2-8.2) g/dL Albumin 3.5 L (3.8-4.9) g/dL Lipase 486 H (14-60) U/L Assessment and Plan Time with Patient: Less than 30
[2024-07-12] MEDS ORDERED: HYDROmorphone 1 MG/ML 1 ML SYRINGE IVP PRN (15:23)
[2024-07-12] MEDS: HYDROmorphone 1 MG/ML 1 ML SYRINGE IVP PRN (18:06)
[2024-07-13] MEDS ORDERED: HYDROmorphone 1 MG/ML 1 ML SYRINGE ONE ×2 (00:12→03:08)
[2024-07-13 03:53] VITALS: RESP 18
[2024-07-13 12:00] LABS: Basophils # (A) 0.1 k/uL (0-0.2); Basophils % (A) 1 %; Eosinophils # (A) 0.3 k/uL (0-0.7); Eosinophils % (A) 3 %; HCT 43.5 % (39.0-53.0); HGB 14.1 gm/dL (13.0-17.5); Lymphocytes # (A) 1.6 k/uL (1.0-4.8); Lymphocytes % (A) 17 %; MCH 29.6 pg (25.0-35.0); MCHC 32.5 g/dL (31.0-37.0); MCV 90.9 fL (80.0-100.0); Mean Platelet Volume 9.1; Monocytes # (A) 0.7 k/uL (0-1.0); Monocytes % (A) 8 %; Neutrophils # (A) 6.5 k/uL (1.3-7.7); Neutrophils % (A) 70 %; Platelet Count 127 k/uL (150-450); RBC 4.78 m/uL (4.30-5.90); RDW 12.9 % (11.5-15.5); WBC 9.3 k/uL (3.8-10.6)
[2024-07-13 12:10] LABS: African American GFR (CKD) >90 (>60 ml/min/1.73 sqM); Amylase 101 U/L (30-110); Anion Gap 4 mmol/L; Blood Urea Nitrogen 7 mg/dL (9-20); Calcium 8.5 mg/dL (8.4-10.2); Carbon Dioxide 24 mmol/L (22-30); Chloride 110 mmol/L (98-107); Glucose 89 mg/dL (74-99); Lipase 557 U/L (23-300); Non-African American GFR(CKD) >90 (>60 ml/min/1.73 sqM); Sodium 138 mmol/L (137-145)
[2024-07-13 12:19] VITALS: BP 120/71; PULSE 64; TEMP 98.5
--- NOTE | 2024-07-13 14:45 | P.DS ---
Providers Date of admission: 07/11/24 07:12 Attending physician: Eugene Rutledge Primary care physician: Stated None Hospital Course: Final Diagnosis Acute alcoholic pancreatitis with elevated amylase and lipase, improved History reported cardiac arrhythmia patient is unable to provide any further details about this Chronic nicotine use Chronic alcoholism COPD with no acute exacerbation Discharge Disposition Patient is stable for discharge home. Patient needs to advance diet as tolerated. Follow up with Dr. Alexey lynn in the office on discharge. Hospital Course This is a pleasant 48-year-old male with medical history of a cardiac arrhythmia as well as pancreatitis and chronic alcoholism. Patient was recently mated to the hospital for pancreatitis about 1 month ago was also diagnosed during that hospital stay for early stages of COPD. Patient was advised to quit alcohol states that he went home and did not drink for a week and a half and then he began to drink again states that he drinks about 1 pint per day he comes back in with abdominal pain epigastric with radiation around to the back as well as decreased appetite and nausea. Blood work reveals and amylase level of 583 lipase level 5704 white count of 17.2 consistent with acute alcoholic pancr eatitis. Patient will be hydrated and made n.p.o. as well as pain medication. He is offered a nicotine patch but declines at this time. Patient has been offered clear liquid diet and can advance as tolerated. His electrolytes and renal function remain within normal limits. He has been using IV Dilaudid [id number] and refusing any other type of pain medication states it does not work for him and not wanting to take the IV Toradol. He is evaluated today looks to be resting comfortably in bed and is not wincing upon palpation of his abdomen. His lipase is down to 557. Recommend to discharge home on GI prophylaxis and to slowly increase diet as tolerated and patient needs to avoid alcohol and increase his oral water intake. Patient needs to see Dr. Alexey Lynn with GI services on discharge as well. Please see medication reconciliation for a list of current medications. Thank you for allowing us to participate in the care of this patient. The impression and plan of care has been dictated by Agnes Pierre, Nurse Practitioner as directed. Dr. Brittny MD I have performed a history and physical examination and medical decision making of this patient, discussed the same with the dictator, and agree with the dictators assessment and plan as written, documented as a scribe. Based on total visit time, I have performed more than 50% of this visit. Patient Condition at Discharge: Fair Plan - Discharge Summary Discharge Rx Participant: Yes New Discharge Prescriptions: No Action Fexofenadine HCl [Kathryn Allergy] 180 mg PO DAILY Potassium Citrate 99 mg PO DAILY Folic Acid 1 mg PO DAILY #90 tab Thiamine [Vitamin B-1] 100 mg PO DAILY #90 tab Multivit-Mins/Iron/Folic/Lycop [Centrum Men's Tablet] 1 tab PO DAILY Omeprazole 20 mg PO DAILY Ascorbic Acid [Vitamin C] 1,000 mg PO DAILY Albuterol Sulfate [Albuterol Sulfate Hfa] 1 puff INHALATION RT-QID PRN PRN Reason: Shortness Of Breath Magnesium Citrate 200 mg PO DAILY Discharge Medication List Albuterol Sulfate [Albuterol Sulfate Hfa] 1 puff INHALATION RT-QID PRN 05/31/24 [History] Ascorbic Acid [Vitamin C] 1,000 mg PO DAILY 05/31/24 [History] Fexofenadine HCl [Kathryn Allergy] 180 mg PO DAILY 05/31/24 [History] Omeprazole 20 mg PO DAILY 05/31/24 [History] Potassium Citrate 99 mg PO DAILY 05/31/24 [History] Folic Acid 1 mg PO DAILY #90 tab 06/03/24 [Rx] Thiamine [Vitamin B-1] 100 mg PO DAILY #90 tab 06/03/24 [Rx] Magnesium Citrate 200 mg PO DAILY 07/11/24 [History] Multivit-Mins/Iron/Folic/Lycop [Centrum Men's Tablet] 1 tab PO DAILY 07/11/24 [History] Follow up Appointment(s)/Referral(s): None,Stated [Primary Care Provider] - 1-2 days Discharge/Stand Alone Forms: AA Meetings [place], Community Resources, Inp Substance Abuse Facilities
== END 2024-07-13 15:15 | disposition home or self-care (01) | DRG 440 ==
LOC: EC 05:41 → 5NMEDONC 07:12
PROVIDERS: ADMIT Hospitalist; ATTEND Hospitalist
DX: K85.20 Alcohol induced acute pancreatitis without necrosis or infection (principal); F17.200 Nicotine dependence, unspecified, uncomplicated; J44.9 Chronic obstructive pulmonary disease, unspecified; F10.20 Alcohol dependence, uncomplicated; M50.20 Other cervical disc displacement, unspecified cervical region; Z28.310 Unvaccinated for COVID-19; Z79.899 Other long term (current) drug therapy; Z88.1 Allergy status to other antibiotic agents; Z88.8 Allergy status to other drugs, medicaments and biological substances
CPT/HCPCS: 36415; 80048; 80053; 80320; 81003; 82150; 83605; 83690; 83735; 84100; 84484; 85025; 85610; 85730; 94640; 96361; 96374; 96375; 99285